=== PATIENT | female | born 1950 | race Caucasian/White ===

== ENCOUNTER 2019-11-18 16:28 | Inpatient (IN) | payer BC, MEDICARE ==
[2019-11-18 16:42] LABS: Glucose,Whole Blood 140 mg/dL (75-99)
--- NOTE | 2019-11-18 16:42 | XR ---
EXAMINATION TYPE: XR chest 1V portable DATE OF EXAM: 11/18/2019 COMPARISON: Chest x-ray July 21, 2014 HISTORY: Chest pain. TECHNIQUE: Single frontal view of the chest is obtained. FINDINGS: Overlying EKG leads. There is some chronic parenchymal change without suspicious new focal air space opacity, pleural effusion, or pneumothorax seen. The cardiac silhouette size remains withi n normal limits. The osseous structures are intact. IMPRESSION: No acute process. No significant change from prior.
--- NOTE | 2019-11-18 16:56 | ED ---
General Adult HPI - General Chief complaint: Altered Mental Status Stated complaint: STEMI Time Seen by Provider: 11/18/19 16:29 Source: EMS Mode of arrival: EMS Limitations: altered mental status - History of Present Illness Initial comments: Patient presents the ED by ambulance for evaluation. Per EMS, the patient's friend called them when the patient was found by her friend with altered mental status. Per EMS, the patient's initial EKG done in the field demonstrated anteriorly ST elevations. A code STEMI was called prior to the patient's arriv al to the ED after I viewed the patient's EMS EKG, which demonstrated anterior lead ST segment elevations with inferior lead reciprocal changes. On arrival to the ED, patient is noted to be quite confused, and she is not able to answer any questions appropriately at this time. EMS states that the patient's friend reported to them that the patient is normally A and O 3. No other history is available at this time. - Related Data Home Medications Medication Instructions Recorded Confirmed ARIPiprazole [Abilify] 20 mg PO DAILY 05/23/15 09/17/16 [place]-3 Fatty Acids/Fish Oil [Fish 1 each PO DAILY 05/23/15 09/17/16 Oil 1,000 mg Softgel] Polyethylene Glycol 3350 [Miralax] 17 gm PO DAILY 05/23/15 09/17/16 Vitamin B Complex 1 each PO DAILY 05/23/15 09/17/16 FLUoxetine HCL [PROzac] 40 mg PO DAILY 08/08/15 09/17/16 guaiFENesin [Mucinex] 600 mg PO Q12HR 02/27/16 09/17/16 Loperamide [Imodium] 2 mg PO BID PRN 06/18/16 09/17/16 Cyclobenzaprine [Flexeril] 10 mg PO HS 07/02/16 09/17/16 Previous Rx's Medication Instructions Recorded Divalproex ER [Depakote ER] 750 mg PO 2100 #7 tab.er.24h 04/26/15 Folic Acid 1 mg PO DAILY@1200 #30 tab 04/26/15 HYDROcodone/APAP 5-325MG [[place] 1 each PO TID PRN #9 tab 04/26/15 5-325] Multivitamins, Thera [Multivitamin 1 each PO DAILY@1200 #30 tab 04/26/15 (formulary)] Thiamine [Vitamin B-1] 100 mg PO DAILY@1200 #30 tab 04/26/15 Ziprasidone [Geodon] 20 mg PO BID #14 cap 04/26/15 Allergies Allergy/AdvReac Type Severity Reaction Status Date / Time fentanyl Allergy Unknown Verified 11/18/19 16:44 Review of Systems ROS Statement: Those systems with pertinent positive or pertinent negative responses have been documented in the HPI. Limitations: ROS unobtainable due to patients medical condition Past Medical History Past Medical History: Dementia, Musculoskeletal Disorder, Osteoarthritis (OA) Additional Past Medical History / Comment(s): DEAF SINCE LT EAR, gait dysfunction History of Any Multi-Drug Resistant Organisms: MRSA Date of last positivie culture/infection: 01/09/2015 MDRO Source:: Left Hip debridement Past Surgical History: Cholecystectomy Additional Past Surgical History / Comment(s): "correction of a slipped femur", bunionectomy on the right Past Anesthesia/Blood Transfusion Reactions: No Reported Reaction Past Psychological History: Bipolar, Depression Smoking Status: Former smoker Past Alcohol Use History: Occasional Past Drug Use History: None Reported - Past Family History Father Family Medical History: Unable to Obtain Additional Family Medical History / Comment(s): pt uncooperative Mother Family Medical History: Unable to Obtain Additional Family Medical History / Comment(s): pt uncooperative General Exam Limitations: altered mental status General appearance: alert Head exam: Present: atraumatic, normocephalic Eye exam: Present: normal appearance, PERRL, EOMI ENT exam: Present: mucous membranes dry Neck exam: Present: other (Trachea is in midline). Absent: tenderness, meningismus Respiratory exam: Present: normal lung sounds bilaterally. Absent: respiratory distress, wheezes, rales, rhonchi Cardiovascular Exam: Present: normal rhythm, tachycardia, normal heart sounds, other (Normal radial pulses bilaterally) GI/Abdominal exam: Present: soft. Absent: distended, tenderness, guarding Extremities exam: Absent: tenderness, pedal edema, calf tenderness Neurological exam: Present: alert, other (Patient is oriented only to self at this time; patient localizes to pain in all 4 extremities; patient is moving all 4 extremities spontaneously) Skin exam: Present: warm, dry, intact Course Vital Signs 11/18/19 11/18/19 11/18/19 16:28 16:30 16:40 Temperature 97.4 F L Pulse Rate 142 H 142 H 134 H Respiratory 20 20 20 Rate Blood Pressure 119/73 106/84 85/68 O2 Sat by Pulse 92 L 98 98 Oximetry 11/18/19 11/18/19 11/18/19 16:47 17:12 17:16 Temperature 97.4 F L Pulse Rate 137 H 134 H 134 H Respiratory 20 20 20 Rate Blood Pressure 122/104 58/45 58/45 O2 Sat by Pulse 97 97 Oximetry - Reevaluation(s) Reevaluation #1: 11/18/19 16:23 Code STEMI was activated (prior to the patient's arrival to the ED), and the patient's EMS EKG findings were discussed with Dr. Anton (ornamental machine operator). Master Fisher was activated. 11/18/19 16:36 Case was discussed again with Dr. Anton after my evaluation of the patient on her arrival to the ED. We are in agreement that given the patient's altered mentation and tachycardia that a noncontrast CT head and CT angiogram chest be obtained to rule out CVA/intracranial hemorrhage and pulmonary embolus prior to take the patient to the receiver/laborer. Plan will be to take the patient to the receiver/laborer if these imaging studies are negative. EKG Findings - EKG Comments: EKG Findings:: Sinus tachycardia, ventricular rate of 142 bpm, no ectopy, normal NV and QRS intervals, normal QT interval, normal axis, anterior lead ST elevations Medical Decision Making - Medical Decision Making Patient presents to the ED with altered mental status and anterior lead ST elevations on EKG. Patient's head CT is negative for acute intracranial abnormality, and her CT angiogram chest is negative for pulmonary embolus. Code STEMI was activated prior to the patient's arrival to the ED. Patient was immediately taken to the receiver/laborer by Dr. Torres (interventional cardiology) upon the radiologist's reads of her noncontrast head CT and CT angiogram chest. - Lab Data Result diagrams: 11/18/19 16:56 11/18/19 16:56 Lab Results 11/18/19 11/18/19 11/18/19 Range/Units 16:31 16:56 16:56 WBC 13.7 H (3.8-10.6) k/uL RBC 5.09 (3.80-5.40) m/uL Hgb 15.1 (11.4-16.0) gm/dL Hct 46.8 H (34.0-46.0) % MCV 91.9 (80.0-100.0) fL MCH 29.6 (25.0-35.0) pg MCHC 32.3 (31.0-37.0) g/dL RDW 13.8 (11.5-15.5) % Plt Count 192 (150-450) k/uL Neutrophils % 81 % Lymphocytes % 13 % Monocytes % 4 % Eosinophils % 1 % Basophils % 0 % Neutrophils # 11.1 H (1.3-7.7) k/uL Lymphocytes # 1.8 (1.0-4.8) k/uL Monocytes # 0.6 (0-1.0) k/uL Eosinophils # 0.1 (0-0.7) k/uL Basophils # 0.0 (0-0.2) k/uL PT (9.0-12.0) sec INR (<1.2) APTT (22.0-30.0) sec Sodium 131 L (137-145) mmol/L Potassium 5.0 (3.5-5.1) mmol/L Chloride 102 (98-107) mmol/L Carbon Dioxide 12 L (22-30) mmol/L Anion Gap 17 mmol/L BUN 30 H (7-17) mg/dL Creatinine 1.14 H (0.52-1.04) mg/dL Est GFR (CKD-EPI)AfAm 57 (>60 ml/min/1.73 sqM) Est GFR (CKD-EPI)NonAf 50 (>60 ml/min/1.73 sqM) Glucose 154 H (74-99) mg/dL POC Glucose (mg/dL) 140 H (75-99) mg/dL POC Glu Tree Cutter ID Radha Tsai Calcium 7.6 L (8.4-10.2) mg/dL Total Bilirubin 1.4 H (0.2-1.3) mg/dL AST 111 H (14-36) U/L ALT 47 H (4-34) U/L Alkaline Phosphatase 107 (38-126) U/L Total Creatine Kinase (30-135) U/L Total Protein 6.6 (6.3-8.2) g/dL Albumin 2.7 L (3.5-5.0) g/dL Valproic Acid <10.0 ug/mL Serum Alcohol <10 mg/dL 11/18/19 11/18/19 Range/Units 16:56 16:56 WBC (3.8-10.6) k/uL RBC (3.80-5.40) m/uL Hgb (11.4-16.0) gm/dL Hct (34.0-46.0) % MCV (80.0-100.0) fL MCH (25.0-35.0) pg MCHC (31.0-37.0) g/dL RDW (11.5-15.5) % Plt Count (150-450) k/uL Neutrophils % % Lymphocytes % % Monocytes % % Eosinophils % % Basophils % % Neutrophils # (1.3-7.7) k/uL Lymphocytes # (1.0-4.8) k/uL Monocytes # (0-1.0) k/uL Eosinophils # (0-0.7) k/uL Basophils # (0-0.2) k/uL PT 12.5 H (9.0-12.0) sec INR 1.2 H (<1.2) APTT 21.5 L (22.0-30.0) sec Sodium (137-145) mmol/L Potassium (3.5-5.1) mmol/L Chloride (98-107) mmol/L Carbon Dioxide (22-30) mmol/L Anion Gap mmol/L BUN (7-17) mg/dL Creatinine (0.52-1.04) mg/dL Est GFR (CKD-EPI)AfAm (>60 ml/min/1.73 sqM) Est GFR (CKD-EPI)NonAf (>60 ml/min/1.73 sqM) Glucose (74-99) mg/dL POC Glucose (mg/dL) (75-99) mg/dL POC Glu Tree Cutter ID Calcium (8.4-10.2) mg/dL Total Bilirubin (0.2-1.3) mg/dL AST (14-36) U/L ALT (4-34) U/L Alkaline Phosphatase (38-126) U/L Total Creatine Kinase 409 H (30-135) U/L Total Protein (6.3-8.2) g/dL Albumin (3.5-5.0) g/dL Valproic Acid ug/mL Serum Alcohol mg/dL - Radiology Data Radiology results: report reviewed (Chest x-ray is negative; noncontrast head CT is negative for acute intracranial abnormality; CT angiogram chest is negative for pulmonary embolus, but does demonstrate mild to moderate emphysematous and fibrotic changes, as well as a moderate-sized pericardial effusion causing mass effect on the right heart system) Critical Care Time Critical Care Time: Yes (ST elevation myocardial infarction, altered mental status) Total Critical Care Time: 45 Disposition Clinical Impression: Altered mental status, Pericardial effusion Narrative: Suspected ST elevation myocardial infarction Disposition: ADMITTED IP TO THIS [facility] Condition: Serious Is patient prescribed a controlled substance at d/c from ED?: No Referrals: None,Stated [Primary Care Provider] - 1-2 days Time of Disposition: 17:12
--- NOTE | 2019-11-18 17:02 | CT ---
EXAMINATION TYPE: CT brain wo con DATE OF EXAM: 11/18/2019 HISTORY: Confusion. CT DLP: 1074 mGycm. Automated Exposure Control for Dose Reduction was Utilized. TECHNIQUE: CT scan of the head is performed without contrast. COMPARISON: None. FINDINGS: There is no acute intracranial hemorrhage or midline shift identified. There is diffuse v entricular and sulcal prominence consistent with diffuse cerebral atrophy greatest over the bilateral frontal lobes. There is low-attenuation in the periventricular white matter consistent with chronic small vessel ischemic change. Dependent in opacity left maxillary sinus favors focal mucosal thicken ing. Remainder paranasal sinuses are clear. IMPRESSION: No acute intracranial hemorrhage or midline shift. There is mild to moderate diffuse ce rebral atrophy greatest over bilateral frontal lobes and chronic small vessel ischemic change noted.
[2019-11-18 17:06] LABS: Basophils % (A) 0 %; Eosinophils # (A) 0.1 k/uL (0-0.7); Eosinophils % (A) 1 %; HCT 46.8 % (34.0-46.0); HGB 15.1 gm/dL (11.4-16.0); Lymphocytes # (A) 1.8 k/uL (1.0-4.8); Lymphocytes % (A) 13 %; MCH 29.6 pg (25.0-35.0); MCHC 32.3 g/dL (31.0-37.0); MCV 91.9 fL (80.0-100.0); Mean Platelet Volume 9.2; Monocytes # (A) 0.6 k/uL (0-1.0); Monocytes % (A) 4 %; Neutrophils # (A) 11.1 k/uL (1.3-7.7); Neutrophils % (A) 81 %; Platelet Count 192 k/uL (150-450); RBC 5.09 m/uL (3.80-5.40); RDW 13.8 % (11.5-15.5); WBC 13.7 k/uL (3.8-10.6)
--- NOTE | 2019-11-18 17:08 | CT ---
EXAMINATION TYPE: CT chest angio for PE DATE OF EXAM: 11/18/2019 COMPARISON: Chest x-ray earlier today HISTORY: Tachycardia, anterior ST elevation. CT DLP: 730.2 mGycm. Automated Exposure Control for Dose Reduction was Utilized. CONTRAST: CTA scan of the thorax is performed with IV Contrast, patient injected with 100 mL of Isovue 370, pul monary embolism protocol. MIP Images are created on CT scanner and reviewed. FINDINGS: LUNGS: Exam noted suboptimal as patient is unable to breath-hold. This limits evaluation particularly for subcentimeter nodules. Background mild to probable moderate underlying emphysematous change is f elt present. There is mild bibasilar linear atelectasis and/or scarring. No suspicious focal consolid ation. No pleural effusion or pneumothorax. MEDIASTINUM: There is satisfactory enhancement of the pulmonary artery and its branches, there is no CT evidence for pulmonary embolism. There are no greater than 1 cm hilar or mediastinal lymph nodes. Moderate size pericardial effusion is seen greatest anterior inferior aspect measuring up to 21 mm i n thickness coronal image 58. Some mass effect in the right atrium and right ventricle is noted. Ther e is reflux of contrast into hepatic veins and IVC suggesting degree of right heart failure. Three-ve ssel coronary artery calcification and/or stents is seen. OTHER: Scoliotic curvature with multilevel spurring. Multilevel disc space narrowing and vacuum disc phenomenon at the thoracolumbar junction. IMPRESSION: 1. No CT evidence for acute pulmonary embolism. 2. Suboptimal study with mild to moderate underlying emphysematous and mild parenchymal fibrotic rendon ges are present. No suspicious acute pulmonary process. There is however fairly moderate-sized perica rdial effusion causing mass effect on right heart system. Significant right heart failure identified with reflux of contrast into hepatic veins and IVC even with subhepatic extension.
[2019-11-18] MEDS ORDERED: ASPIRIN 81 MG PO STA (17:09)
[2019-11-18 17:15] LABS: AST 111 U/L (14-36); African American GFR (CKD) 57 (>60 ml/min/1.73 sqM); Albumin 2.7 g/dL (3.5-5.0); Alcohol <10 mg/dL; Alkaline Phosphatase 107 U/L (38-126); Anion Gap 17 mmol/L; Blood Urea Nitrogen 30 mg/dL (7-17); Calcium 7.6 mg/dL (8.4-10.2); Carbon Dioxide 12 mmol/L (22-30); Chloride 102 mmol/L (98-107); Glucose 154 mg/dL (74-99); Non-African American GFR(CKD) 50 (>60 ml/min/1.73 sqM); Sodium 131 mmol/L (137-145); Total Bilirubin 1.4 mg/dL (0.2-1.3); Total Protein 6.6 g/dL (6.3-8.2)
[2019-11-18 17:20] LABS: Valproic Acid (Depakene) <10.0 ug/mL
[2019-11-18 17:22] LABS: ALT 47 U/L (4-34)
[2019-11-18 17:24] LABS: INR 1.2 (<1.2); Prothrombin Time 12.5 sec (9.0-12.0)
[2019-11-18] MEDS ORDERED: LIDOCAINE 1% INJ 10MG/ML (20 ML MDV) ONE (17:28)
[2019-11-18 17:29] LABS: Partial Thromboplastin Time 21.5 sec (22.0-30.0)
[2019-11-18 17:32] LABS: Creatine Kinase MB 12.5 ng/mL (0.0-2.4)
[2019-11-18] MEDS ORDERED: LIDOCAINE 1% INJ 10MG/ML (20 ML MDV) SQ ONE (17:34)
[2019-11-18] MEDS ORDERED: IV FLUID CONTINUATION 900 ML IV ONE ×2 (17:36)
[2019-11-18] MEDS ORDERED: NOREPINEPHRINE 4 MG in SODIUM CHLORIDE 0.9% 250 ML IV ONE (17:40)
[2019-11-18] MEDS ORDERED: HEPARIN SODIUM 1,000 UN/ML (10ML VL) IV ONE (17:45)
[2019-11-18] MEDS ORDERED: HEPARIN SODIUM 1,000 UN/ML (10ML VL) ONE (17:46)
[2019-11-18] MEDS ORDERED: FUROSEMIDE 10 MG/ML 4 ML VIAL ONE (17:47)
[2019-11-18] MEDS ORDERED: SODIUM BICARB 8.4% 50 ML VIAL (1 MEQ/ML) IV ONE (17:50)
[2019-11-18] MEDS ORDERED: FUROSEMIDE 10 MG/ML 4 ML VIAL IV ONE (18:00)
[2019-11-18] MEDS ORDERED: MORPHINE SULFATE 4 MG/ML SYRINGE ONE (18:02)
[2019-11-18] MEDS ORDERED: MORPHINE SULFATE 4 MG/ML SYRINGE IV ONE (18:02)
[2019-11-18 18:05] LABS: ABG Oxygen Saturation 98.7 % (94-97); ABG PCO2 21 mmHg (35-45); ABG PO2 138 mmHg (83-108); ABG TCO2 11 mmol/L (19-24); Allen Test Performed? Yes
[2019-11-18 18:09] LABS: ABG HCO3 10 mmol/L (21-25)
[2019-11-18] MEDS ORDERED: CLOPIDOGREL 75 MG TAB ONE (18:10)
[2019-11-18] MEDS ORDERED: CLOPIDOGREL 75 MG TAB PO ONE (18:15)
[2019-11-18] MEDS ORDERED: IOPAMIDOL-370 125ML BTL INJ ONE ×2 (18:53→18:54)
[2019-11-18] MEDS ORDERED: HEPARIN SODIUM,PORCINE 5,000 UNIT/ML 1 ML VIAL IV PRN (19:04)
[2019-11-18] MEDS ORDERED: RX INFO: IV CONTRAST WAS GIVEN 1 EACH MISC MISCELLANE PRN (19:07)
[2019-11-18] MEDS ORDERED: ZOLPIDEM 5 MG TAB PO PRN (19:07)
[2019-11-18] MEDS ORDERED: NITROGLYCERIN SL TABS 0.4 MG TAB SUBLINGUAL PRN (19:07)
[2019-11-18] MEDS ORDERED: ATROPINE SULFATE 0.1 MG/ML 10ML SYRINGE IV PRN (19:07)
[2019-11-18] MEDS ORDERED: MAG HYDROX/AL HYDROX/SIMETH 30 ML CUP PO PRN (19:07)
[2019-11-18] MEDS ORDERED: HEPARIN SOD,PORK IN 0.45% NACL 25,000 UNIT in 0.45% NACL 1 250ML.BAG IV SCH (19:15)
[2019-11-18] MEDS ORDERED: HEPARIN SODIUM,PORCINE 12,500 UNIT in DEXTROSE 5% IN WATER 500 ML IV SCH ×2 (19:15)
[2019-11-18] MEDS ORDERED: SODIUM CHLORIDE 0.9% 1,000 ML IV SCH (19:15)
--- NOTE | 2019-11-18 19:22 | P.PCN ---
Date of Procedure: 11/18/19 Operative Findings: PERCUTANEOUS CORONARY INTERVENTION Performing physician: Wally Torres M.D., [facility] Procedure performed: 1. Successful stenting of the proximal left anterior descending artery using 3.0 x 18 mm Xience EMBER with an excellent angiographic results 2. Successful stenting of the proximal left anterior descending artery using 3.5 x 18 mm Xience EMBER with an excellent angiographic results 3. Left heart catheterization 4. Successful placement of Impella CP in the left ventricle 5. Right common femoral artery angiogram Indication: This is a 69-year-old female patient who presented to the hospital with a change in mental status and was found to be in acute anterior ST patient myocardial infarction. She underwent an emergent heart catheterization by Dr. Anton after intracranial process was ruled out, and the heart catheterization revealed critical disease involving the proximal left anterior descending artery as well as critical disease involving the proximal RCA. Also she was found to have intermediate disease involving the mid LCx. Because of that PCI was advised. Approach: Right common femoral artery Complication: None Level of sedation: Moderate sedation length of 72 minutes Door to balloon: 90 minutes, the delay in door to balloon was because the patient underwent a CTA of the head to rule out intracranial process. Procedure description: Please refer to the prostate heart catheterization was performed by Dr. Anton earlier today. Anticoagulation was initiated using Angiomax. Subsequently I did engage the left main using an XB 35 LAD guide. Subsequently I did wire the LAD using a whisper wire. The wire was advanced all the way to the apical LAD. Subsequently I did do balloon angioplasty of the LAD using 2.5 x 12 mm balloon which was inflated under 16 mimi for 30 seconds. Subsequently I deployed 3.0 x 18 mm Xience EMBER in the proximal LAD where the stent was positioned under fluoroscopy guidance and deployed under 20 mimi for 20 seconds. The following angiogram showed good angiographic results. There was a very small [id number] possible distal edge dissection and because it was not flow-limiting I decided to leave it alone. Because the patient continues to be hypotensive and requiring high-dose of norepinephrine at 30 mics, I decided to fix the RCA. I did engage the RCA using JR 3.5 guide. I did where it using a run-through wire. Subsequently I did direct stenting of the RCA using 3.5 x 18 mm another Xience EMBER where the stent was positioned under fluoroscopy guidance and deployed under 18 mimi for 20 seconds. The following angiogram showed good angiographic results. After that and because the patient continues to be hypotensive and requiring high-dose norepinephrine I decided to place Impella in the LV. I did preclosed using 2 Perclose at 10 and 2:00 o'clock After that I did place 14-Lithuanian sheath 23 cm overestimate wire after predilated using 8-Lithuanian, then Lithuanian, and 12-Lithuanian dilators. Subsequently the sheath was flushed. Please note that the patient ACT was checked prior to place a 14-Lithuanian sheath and the patient ACT was more than 300. After that I did left heart catheterization using 6-Lithuanian pigtail catheter. The LVEDP was more than 20 mmHg. After that I did place an 018 wire in the pigtail catheter in the left ventricle. Subsequently I did advanced the Impella over the wire the left ventricle. That was performed under fluoroscopy guidance. Then it was turned on. Immediately I was able to lower the dose of norepinephrine to 20 my. At that point the procedure was completed without any complication. Postprocedure management: 1. ICU admission 2. The right to wean the patient from norepinephrine 3. Monitor the arterial circulation in the right leg 4. Removed in total in the next 24-48 hours 5. Maintain the PTT to be therapeutic per Impella protocol 6. Follow-up with the patient
--- NOTE | 2019-11-18 19:38 | CC ---
CARDIAC CATHETERIZATION REPORT INDICATION: Acute anterior wall myocardial infarction. PROCEDURE NOTE: After obtaining informed consent, left heart catheterization and coronary angiogram were performed via the right femoral artery using standard Des catheters. The patient is in cardiogenic shock with systolic blood pressures in the 60s and 70s. We started her on Levophed, but the patient remained hypertensive throughout. Her central aortic pressure is 60-70 mm. We did not do any left ventriculogram. The patient received moderate conscious sedation and total sedation time was 12 minutes. HEMODYNAMICS: Central aortic pressure is 70/40 mm. LEFT VENTRICULOGRAM: Left ventriculogram is not performed. ANGIOGRAPHIC DATA: LEFT MAIN CORONARY ARTERY: Left main coronary artery is a normal-sized vessel and is free of stenosis. Divides into left anterior descending coronary artery and circumflex coronary artery. CIRCUMFLEX CORONARY ARTERY: Circumflex coronary artery is free of significant stenosis. LEFT ANTERIOR DESCENDING CORONARY ARTERY: LAD seems occluded in its midportion. RIGHT CORONARY ARTERY: Right coronary artery is a large dominant vessel that shows a focal area of stenosis in the proximal part which seems to be 70% stenosis. CONCLUSIONS: 1. Cardiogenic shock secondary to extensive anterior wall myocardial infarction. 2. Acute occlusion of the LAD. 3. 70-80 percent stenosis involving the proximal part of the right coronary artery. PLAN: Patient will undergo emergent angioplasty of the LAD by Dr. Guerrero the on-call toll patrolman. The patient's prognosis is guarded. She is on Levophed and we will increase the dose as tolerated for a systolic pressure of 100. MMODL / IJN: [id number] /
--- NOTE | 2019-11-18 19:44 | CONS ---
CONSULTATION CHIEF COMPLAINT: Acute anterior wall myocardial infarction. HISTORY OF PRESENT ILLNESS: This is a 69-year-old lady who STEMI was diagnosed by the EMS. The patient apparently was found confused at home. EMS was called. EKG revealed acute anterior wall myocardial infarction. She was brought in. The ER physician who evaluated the patient, got a CT scan of the brain that was negative for any acute intracranial pathology. He was also wondering if the patient had a pulmonary embolism. The patient had a CT scan of the chest. I am told they were both negative and she was brought to laborer tree tapping for emergent cardiac cath. I evaluated the patient in the laborer tree tapping and she states that her primary symptom had been shortness of breath. She also appears somewhat confused. Past medical history, medications, allergies are as charted. I am not able to obtain detailed history from the patient at this time given the critical nature of patient's illness. REVIEW OF SYSTEMS: Not obtained. EXAM: Patient's heart rate is around 110 beats per minute. Blood pressure was 68/43 and patient was started on Levophed. Chest exam reveals diminished air entry at the bases. Heart exam reveals first and second heart sounds and a systolic murmur at the left lower sternal border. Abdomen is soft. Exam of the extremities did not reveal any edema. Peripheral pulses are diminished. EKG shows acute ST-segment elevation in V2, V3. Full lab showed that the creatinine was 1.1. White cell count is slightly elevated. ASSESSMENT: 1. Acute extensive anterior wall myocardial infarction. 2. Acute cardiogenic shock. PLAN: Patient will undergo emergent cardiac catheterization and possible angioplasty. MMODL / IJN: [id number] /
[2019-11-18] MEDS: NOREPINEPHRINE 4 MG in SODIUM CHLORIDE 0.9% 250 ML IV SCH (20:07)
[2019-11-18 20:30] LABS: Basophils % (A) 0 %; Eosinophils % (A) 0 %; HCT 47.8 % (34.0-46.0); HGB 15.6 gm/dL (11.4-16.0); Lymphocytes # (A) 1.6 k/uL (1.0-4.8); Lymphocytes % (A) 6 %; MCH 30.2 pg (25.0-35.0); MCHC 32.7 g/dL (31.0-37.0); MCV 92.3 fL (80.0-100.0); Monocytes # (A) 1.9 k/uL (0-1.0); Monocytes % (A) 7 %; Neutrophils # (A) 22.2 k/uL (1.3-7.7); Neutrophils % (A) 85 %; Platelet Count 203 k/uL (150-450); RBC 5.18 m/uL (3.80-5.40); RDW 13.9 % (11.5-15.5); WBC 26.2 k/uL (3.8-10.6)
[2019-11-18 20:45] LABS: Calcium 7.6 mg/dL (8.4-10.2); Magnesium 2.9 mg/dL (1.6-2.3); Potassium 5.5 mmol/L (3.5-5.1)
[2019-11-18 20:56] LABS: Fibrinogen 496 mg/dL (200-500); INR 1.5 (<1.2); Prothrombin Time 15.1 sec (9.0-12.0)
[2019-11-18 21:01] LABS: Partial Thromboplastin Time >200.0 sec (22.0-30.0)
[2019-11-18 21:04] LABS: Glucose,Whole Blood 165 mg/dL (75-99)
[2019-11-18] MEDS: SODIUM BICARB 8.4% 50 ML SYR (1 MEQ/ML) IV STA (22:06)
[2019-11-18] MEDS: ATORVASTATIN 80 MG TAB PO SCH (22:11)
[2019-11-18] MEDS: METOPROLOL TARTRATE 25 MG TAB PO SCH (22:11)
[2019-11-19 01:46] LABS: Basophils % (A) 0 %; Eosinophils % (A) 0 %; HCT 46.6 % (34.0-46.0); HGB 15.3 gm/dL (11.4-16.0); Lymphocytes # (A) 1.6 k/uL (1.0-4.8); Lymphocytes % (A) 9 %; MCHC 32.9 g/dL (31.0-37.0); MCV 91.1 fL (80.0-100.0); Mean Platelet Volume 9.5; Monocytes # (A) 1.1 k/uL (0-1.0); Monocytes % (A) 6 %; Neutrophils # (A) 15.7 k/uL (1.3-7.7); Neutrophils % (A) 83 %; Platelet Count 182 k/uL (150-450); RBC 5.11 m/uL (3.80-5.40); RDW 13.9 % (11.5-15.5); WBC 18.9 k/uL (3.8-10.6)
[2019-11-19 02:15] LABS: Albumin 3.7 g/dL (3.5-5.0); Calcium 7.5 mg/dL (8.4-10.2); Total Bilirubin 3.7 mg/dL (0.2-1.3); Total Protein 7.9 g/dL (6.3-8.2)
[2019-11-19 02:17] LABS: Potassium 5.1 mmol/L (3.5-5.1)
[2019-11-19 03:53] LABS: Appearance,Urine Bloody (Clear)
[2019-11-19 03:58] LABS: Bacteria,Urine Rare /hpf; Mucus,Urine Many /hpf; RBC,Urine 28 /hpf (0-5); Squamous Epithelial Cell,Urine 9 /hpf (0-4); WBC,Urine 28 /hpf (0-5)
[2019-11-19] MEDS: NOREPINEPHRINE 4 MG in SODIUM CHLORIDE 0.9% 250 ML IV SCH (04:06)
[2019-11-19 05:56] LABS: Basophils % (A) 0 %; Eosinophils % (A) 0 %; HCT 42.7 % (34.0-46.0); Lymphocytes # (A) 2.6 k/uL (1.0-4.8); Lymphocytes % (A) 16 %; MCH 29.7 pg (25.0-35.0); MCHC 32.7 g/dL (31.0-37.0); MCV 90.6 fL (80.0-100.0); Mean Platelet Volume 9.9; Monocytes # (A) 0.8 k/uL (0-1.0); Monocytes % (A) 5 %; Neutrophils # (A) 12.5 k/uL (1.3-7.7); Neutrophils % (A) 77 %; Platelet Count 189 k/uL (150-450); RBC 4.71 m/uL (3.80-5.40); RDW 14.1 % (11.5-15.5); WBC 16.3 k/uL (3.8-10.6)
[2019-11-19 06:15] LABS: Albumin 3.1 g/dL (3.5-5.0); Calcium 6.9 mg/dL (8.4-10.2); Total Bilirubin 3.1 mg/dL (0.2-1.3); Total Protein 7.4 g/dL (6.3-8.2)
[2019-11-19 06:17] LABS: Potassium 4.8 mmol/L (3.5-5.1)
[2019-11-19 06:40] LABS: Partial Thromboplastin Time 50.4 sec (22.0-30.0)
--- NOTE | 2019-11-19 06:54 | XR ---
EXAMINATION TYPE: XR chest 1V portable DATE OF EXAM: 11/19/2019 HISTORY: LVAD placement. Perform with HOB at 0 degrees.. REFERENCE: Previous study dated 11/18/2019. FINDINGS: Metal electrodes project over the left side of the neck. Heart size upper limits of normal. The lungs are clear. Pleural spaces are clear. IMPRESSION: BORDERLINE CARDIOMEGALY.
[2019-11-19] MEDS: SODIUM CHLORIDE 0.9% 1,000 ML IV SCH (08:00)
[2019-11-19 11:07] LABS: Partial Thromboplastin Time 54.7 sec (22.0-30.0)
--- NOTE | 2019-11-19 11:44 | P.HPIM ---
History of Present Illness Patient is a 69-year-old female came in with altered mental status found to have acute anterior wall ST ration microinfarction patient underwent cardiac catheterization found to have significant occlusion of LAD as well as proximal RCA patient underwent successful stenting of LAD as well as the Impala placement. Patient was on pressor support on telemetry here today because of cardiac shock wasn't a has Impala and the patient appears to have significant pulmonary edema patient to post cardiac physician is on IV fluids which probably need to be discontinued at this time. Patient is hyponatremic secondary to cardiac causes expected to improve with IV Lasix patient liver enzymes have highly elevated because of hepatic congestion. Patient appears to have a COPD from the CAT scan which is showing emphysematous changes and there is a moderate-sized pericardial effusion I am waiting for the echocardiogram results patient does have significant heart failure on the CAT scan along with dilated IVC. She is presently on IV heparin off levo fed. Review of Systems REVIEW OF SYSTEMS: CONSTITUTIONAL: No fever, no malaise, no fatigue. HEENT: No recent visual problems or hearing problems. Denied any sore throat. CARDIOVASCULAR: No orthopnea, PND, no palpitations, no syncope. PULMONARY: no hemoptysis. GASTROINTESTINAL: No diarrhea, no nausea, no vomiting, no abdominal pain. NEUROLOGICAL: No headaches, no weakness, no numbness. HEMATOLOGICAL: Denies any bleeding or petechiae. GENITOURINARY: Denies any burning micturition, frequency, or urgency. MUSCULOSKELETAL/RHEUMATOLOGICAL: Denies any joint pain, swelling, or any muscle pain. ENDOCRINE: Denies any polyuria or polydipsia. The rest of the 14-point review of systems is negative. Past Medical History Past Medical History: Dementia, Musculoskeletal Disorder, Osteoarthritis (OA) Additional Past Medical History / Comment(s): DEAF SINCE LT EAR, gait dysf unction History of Any Multi-Drug Resistant Organisms: MRSA Date of last positivie culture/infection: 01/09/2015 MDRO Source:: Left Hip debridement Past Surgical History: Cholecystectomy Additional Past Surgical History / Comment(s): "correction of a slipped femur", bunionectomy on the right Past Anesthesia/Blood Transfusion Reactions: No Reported Reaction Past Psychological History: Bipolar, Depression Additional Psychological History / Comment(s): PAST PSYCHOSIS Smoking Status: Former smoker Past Alcohol Use History: Occasional Additional Past Alcohol Use History / Comment(s): 30+ pack year history. REFUSED SMOKING CESSATION BOOKLET Past Drug Use History: None Reported - Past Family History Sister(s) History Unknown: Yes Family Medical History: Cancer Additional Family Medical History / Comment(s): of colon cancer Father History Unknown: Yes Family Medical History: Pulmonary Embolus Additional Family Medical History / Comment(s): of PE after surgery Mother History Unknown: Yes Family Medical History: Cancer Additional Family Medical History / Comment(s): of ovarien cancer Medications and Allergies Home Medications Medication Instructions Recorded Confirmed Type Divalproex ER [Depakote ER] 750 mg PO 2100 #7 tab.er.24h 04/26/15 09/17/16 Rx Folic Acid 1 mg PO DAILY@1200 #30 tab 04/26/15 09/17/16 Rx HYDROcodone/APAP 5-325MG [[place] 1 each PO TID PRN #9 tab 04/26/15 09/17/16 Rx 5-325] Multivitamins, Thera [Multivitamin 1 each PO DAILY@1200 #30 tab 04/26/15 09/17/16 Rx (formulary)] Thiamine [Vitamin B-1] 100 mg PO DAILY@1200 #30 tab 04/26/15 09/17/16 Rx Ziprasidone [Geodon] 20 mg PO BID #14 cap 04/26/15 09/17/16 Rx ARIPiprazole [Abilify] 20 mg PO DAILY 05/23/15 09/17/16 History [place]-3 Fatty Acids/Fish Oil [Fish 1 each PO DAILY 05/23/15 09/17/16 History Oil 1,000 mg Softgel] Polyethylene Glycol 3350 [Miralax] 17 gm PO DAILY 05/23/15 09/17/16 History Vitamin B Complex 1 each PO DAILY 05/23/15 09/17/16 History FLUoxetine HCL [PROzac] 40 mg PO DAILY 08/08/15 09/17/16 History guaiFENesin [Mucinex] 600 mg PO Q12HR 02/27/16 09/17/16 History Loperamide [Imodium] 2 mg PO BID PRN 06/18/16 09/17/16 History Cyclobenzaprine [Flexeril] 10 mg PO HS 07/02/16 09/17/16 History Allergies Allergy/AdvReac Type Severity Reaction Status Date / Time fentanyl Allergy Unknown Verified 11/18/19 16:44 Physical Exam Vitals: Vital Signs Temp Pulse Pulse Resp BP BP Pulse Ox 11/19/19 07:00 87 18 96/84 97 11/19/19 06:45 89 17 92 L 11/19/19 06:30 89 20 11/19/19 06:15 90 12 94 L 11/19/19 06:00 97.4 F L 90 25 H 96 11/19/19 05:45 90 89/55 93 L 11/19/19 05:30 90 97 11/19/19 05:15 96 27 H 95 11/19/19 05:00 97.4 F L 88 20 97 11/19/19 04:45 86 96 11/19/19 04:30 89 19 100/68 95 11/19/19 04:15 87 21 96 11/19/19 04:00 97.0 F L 87 26 H 96 11/19/19 03:45 86 22 121/105 98 11/19/19 03:30 85 19 77/58 97 11/19/19 03:15 86 20 90/69 90 L 11/19/19 03:00 88 123/113 87 L 11/19/19 02:45 90 92 L 11/19/19 02:30 90 11/19/19 02:15 89 26 H 97 11/19/19 02:00 90 27 H 96 11/19/19 01:45 92 22 92 L 11/19/19 01:30 96.9 F L 92 29 H 93 L 11/19/19 01:15 95 34 H 88 L 11/19/19 01:00 96 34 H 114/102 93/87 92 L 11/19/19 00:45 98 26 H 109/81 94 L 11/19/19 00:30 102 H 26 H 152/131 87 L 11/19/19 00:15 104 H 24 135/104 91 L 11/19/19 00:00 96.5 F L 108 H 20 109/76 97/90 91 L 11/18/19 23:45 110 H 28 H 76/49 90 L 11/18/19 23:30 112 H 28 H 100/77 89 L 11/18/19 23:15 112 H 62 H 71/57 84 L 11/18/19 23:00 96.4 F L 114 H 112 H 14 109/82 96/90 94 L 11/18/19 22:52 16 93/87 97 11/18/19 22:49 96.4 F L 115 H 18 97/91 97 11/18/19 22:45 114 H 28 H 84/61 96 11/18/19 22:43 113 H 4 L 84/61 98 11/18/19 22:40 114 H 20 84/61 96 11/18/19 22:30 114 H 16 88 L 11/18/19 22:20 113 H 14 11/18/19 22:10 118 H 16 92 L 11/18/19 22:00 118 H 89 L 11/18/19 21:52 118 H 18 92 L 11/18/19 21:50 120 H 18 90 L 11/18/19 21:49 96.0 F L 118 H 18 101/93 92 L 11/18/19 21:40 120 H 16 94 L 11/18/19 21:30 122 H 20 91 L 11/18/19 21:20 121 H 29 H 93 L 11/18/19 21:19 123 H 22 105/94 93 L 11/18/19 21:10 125 H 21 11/18/19 21:00 96.0 F L 123 H 11/18/19 20:52 123 H 20 93 L 11/18/19 20:50 125 H 19 11/18/19 20:49 130 H 20 96/92 88 L 11/18/19 20:40 129 H 18 88 L 11/18/19 20:30 130 H 8 L 88 L 11/18/19 20:22 135 H 94 L 11/18/19 20:20 134 H 14 90 L 11/18/19 20:19 94.0 F L 135 H 22 97/90 90 L 11/18/19 20:10 134 H 11 L 97 11/18/19 20:00 94.0 F L 134 H 22 90 L 11/18/19 19:50 135 H 12 84 L 11/18/19 19:49 94.0 F L 18 97/90 92 L 11/18/19 19:40 135 H 11 L 91 L 11/18/19 17:16 97.4 F L 134 H 20 58/45 97 11/18/19 17:12 134 H 20 58/45 11/18/19 16:47 137 H 20 122/104 97 11/18/19 16:40 134 H 20 85/68 98 11/18/19 16:30 142 H 20 106/84 98 11/18/19 16:28 97.4 F L 142 H 20 119/73 92 L Intake and Output 11/18/19 11/19/19 11/19/19 22:59 06:59 14:59 Intake Total 2641.533 2309.490 747.394 Output Total 67 50 Balance 2641.533 2242.490 697.394 Intake: IV 1391.1 719.7 367.9 Normal Saline Pressure 9 Bag Purge 41.1 119.7 58.9 Sodium Chloride 0.9% 1, 225 600 300 000 ml @ 75 mls/hr IV . [id number] ADRIANA Rx#:[id number] Intake, IV Titration 0.433 339.790 79.494 Amount Heparin Sod,Pork in 0.45% 0.433 13.94 29.19 NaCl 25,000 unit In 0.45 % NaCl 1 250ml.bag @ Per Protocol 10 mls/hr IV . Q24H ADRIANA Rx#:[id number] Norepinephrine 4 mg In 325.850 50.304 Sodium Chloride 0.9% 250 ml @ 0.05 MCG/KG/MIN 19. 65 mls/hr IV .[id number] ADRIANA Rx#:[id number] Oral 1250 1250 300 Output: Urine 67 50 Other: Voiding Method Indwelling Catheter # Voids 0 0 # Bowel Movements 1 Weight 103 kg 103.4 kg ABP, PAP, CO, CI - Last 8 Hours Arterial Blood Pressure 100/93 Arterial Blood Pressure 100/91 Arterial Blood Pressure 100/91 Arterial Blood Pressure 103/91 Arterial Blood Pressure 105/94 Arterial Blood Pressure 98/92 PHYSICAL EXAMINATION: GENERAL: The patient is alert and oriented x3, not in any acute distress. Well developed, well nourished. HEENT: Pupils are round and equally reacting to light. EOMI. No scleral icterus. No conjunctival pallor. Normocephalic, atraumatic. No pharyngeal erythema. No thyromegaly. CARDIOVASCULAR: S1 and S2 present. No murmurs, rubs, or gallops. She does have elevated JVD PULMONARY: Chest is clear to auscultation, no wheezing or crackles. ABDOMEN: Soft, nontender, nondistended, normoactive bowel sounds. No palpable organomegaly. MUSCULOSKELETAL: No joint swelling or deformity. EXTREMITIES: No cyanosis, clubbing, or pedal edema. NEUROLOGICAL: Gross neurological examination did not reveal any focal deficits. SKIN: No rashes. Results CBC & Chem 7: 11/19/19 05:38 11/19/19 05:38 Labs: Abnormal Lab Results - Last 24 Hours (Table) 11/18/19 11/18/19 11/18/19 Range/Units 16:31 16:56 16:56 WBC 13.7 H (3.8-10.6) k/uL Hct 46.8 H (34.0-46.0) % Neutrophils # 11.1 H (1.3-7.7) k/uL Monocytes # (0-1.0) k/uL PT (9.0-12.0) sec INR (<1.2) APTT (22.0-30.0) sec Fibrinogen (200-500) mg/dL ABG pH (7.35-7.45) ABG pCO2 (35-45) mmHg ABG pO2 (83-108) mmHg ABG HCO3 (21-25) mmol/L ABG Total CO2 (19-24) mmol/L ABG O2 Saturation (94-97) % Sodium 131 L (137-145) mmol/L Potassium (3.5-5.1) mmol/L Carbon Dioxide 12 L (22-30) mmol/L BUN 30 H (7-17) mg/dL Creatinine 1.14 H (0.52-1.04) mg/dL Glucose 154 H (74-99) mg/dL POC Glucose (mg/dL) 140 H (75-99) mg/dL Calcium 7.6 L (8.4-10.2) mg/dL Magnesium (1.6-2.3) mg/dL Total Bilirubin 1.4 H (0.2-1.3) mg/dL AST 111 H (14-36) U/L ALT 47 H (4-34) U/L Alkaline Phosphatase (38-126) U/L Lactate Dehydrogenase (313-618) U/L Total Creatine Kinase (30-135) U/L CK-MB (CK-2) (0.0-2.4) ng/mL Troponin I (0.000-0.034) ng/mL Albumin 2.7 L (3.5-5.0) g/dL Urine Appearance (Clear) Urine RBC (0-5) /hpf Urine WBC (0-5) /hpf Urine WBC Clumps (None) /hpf Ur Squamous Epith Cells (0-4) /hpf Urine Bacteria (None) /hpf Urine Mucus (None) /hpf Stool Occult Blood (Negative) 11/18/19 11/18/19 11/18/19 Range/Units 16:56 16:56 18:00 WBC (3.8-10.6) k/uL Hct (34.0-46.0) % Neutrophils # (1.3-7.7) k/uL Monocytes # (0-1.0) k/uL PT 12.5 H (9.0-12.0) sec INR 1.2 H (<1.2) APTT 21.5 L (22.0-30.0) sec Fibrinogen (200-500) mg/dL ABG pH 7.30 L (7.35-7.45) ABG pCO2 21 L (35-45) mmHg ABG pO2 138 H (83-108) mmHg ABG HCO3 10 L* (21-25) mmol/L ABG Total CO2 11 L (19-24) mmol/L ABG O2 Saturation 98.7 H (94-97) % Sodium (137-145) mmol/L Potassium (3.5-5.1) mmol/L Carbon Dioxide (22-30) mmol/L BUN (7-17) mg/dL Creatinine (0.52-1.04) mg/dL Glucose (74-99) mg/dL POC Glucose (mg/dL) (75-99) mg/dL Calcium (8.4-10.2) mg/dL Magnesium (1.6-2.3) mg/dL Total Bilirubin (0.2-1.3) mg/dL AST (14-36) U/L ALT (4-34) U/L Alkaline Phosphatase (38-126) U/L Lactate Dehydrogenase (313-618) U/L Total Creatine Kinase 409 H (30-135) U/L CK-MB (CK-2) 12.5 H (0.0-2.4) ng/mL Troponin I 28.000 H* (0.000-0.034) ng/mL Albumin (3.5-5.0) g/dL Urine Appearance (Clear) Urine RBC (0-5) /hpf Urine WBC (0-5) /hpf Urine WBC Clumps (None) /hpf Ur Squamous Epith Cells (0-4) /hpf Urine Bacteria (None) /hpf Urine Mucus (None) /hpf Stool Occult Blood (Negative) 11/18/19 11/18/19 11/18/19 Range/Units 20:00 20:00 20:00 WBC 26.2 H (3.8-10.6) k/uL Hct 47.8 H (34.0-46.0) % Neutrophils # 22.2 H (1.3-7.7) k/uL Monocytes # 1.9 H (0-1.0) k/uL PT 15.1 H (9.0-12.0) sec INR 1.5 H (<1.2) APTT >200.0 H* (22.0-30.0) sec Fibrinogen (200-500) mg/dL ABG pH (7.35-7.45) ABG pCO2 (35-45) mmHg ABG pO2 (83-108) mmHg ABG HCO3 (21-25) mmol/L ABG Total CO2 (19-24) mmol/L ABG O2 Saturation (94-97) % Sodium 133 L (137-145) mmol/L Potassium 5.5 H (3.5-5.1) mmol/L Carbon Dioxide 8 L* (22-30) mmol/L BUN 32 H (7-17) mg/dL Creatinine 1.25 H (0.52-1.04) mg/dL Glucose 153 H (74-99) mg/dL POC Glucose (mg/dL) (75-99) mg/dL Calcium 7.6 L (8.4-10.2) mg/dL Magnesium 2.9 H (1.6-2.3) mg/dL Total Bilirubin (0.2-1.3) mg/dL AST (14-36) U/L ALT (4-34) U/L Alkaline Phosphatase (38-126) U/L Lactate Dehydrogenase (313-618) U/L Total Creatine Kinase (30-135) U/L CK-MB (CK-2) (0.0-2.4) ng/mL Troponin I (0.000-0.034) ng/mL Albumin (3.5-5.0) g/dL Urine Appearance (Clear) Urine RBC (0-5) /hpf Urine WBC (0-5) /hpf Urine WBC Clumps (None) /hpf Ur Squamous Epith Cells (0-4) /hpf Urine Bacteria (None) /hpf Urine Mucus (None) /hpf Stool Occult Blood (Negative) 11/18/19 11/19/19 11/19/19 Range/Units 21:01 00:05 00:05 WBC (3.8-10.6) k/uL Hct (34.0-46.0) % Neutrophils # (1.3-7.7) k/uL Monocytes # (0-1.0) k/uL PT (9.0-12.0) sec INR (<1.2) APTT (22.0-30.0) sec Fibrinogen (200-500) mg/dL ABG pH (7.35-7.45) ABG pCO2 (35-45) mmHg ABG pO2 (83-108) mmHg ABG HCO3 (21-25) mmol/L ABG Total CO2 (19-24) mmol/L ABG O2 Saturation (94-97) % Sodium (137-145) mmol/L Potassium (3.5-5.1) mmol/L Carbon Dioxide (22-30) mmol/L BUN (7-17) mg/dL Creatinine (0.52-1.04) mg/dL Glucose (74-99) mg/dL POC Glucose (mg/dL) 165 H (75-99) mg/dL Calcium (8.4-10.2) mg/dL Magnesium (1.6-2.3) mg/dL Total Bilirubin (0.2-1.3) mg/dL AST (14-36) U/L ALT (4-34) U/L Alkaline Phosphatase (38-126) U/L Lactate Dehydrogenase 2004 H (313-618) U/L Total Creatine Kinase (30-135) U/L CK-MB (CK-2) (0.0-2.4) ng/mL Troponin I 20.400 H* (0.000-0.034) ng/mL Albumin (3.5-5.0) g/dL Urine Appearance (Clear) Urine RBC (0-5) /hpf Urine WBC (0-5) /hpf Urine WBC Clumps (None) /hpf Ur Squamous Epith Cells (0-4) /hpf Urine Bacteria (None) /hpf Urine Mucus (None) /hpf Stool Occult Blood (Negative) 11/19/19 11/19/19 11/19/19 Range/Units 01:35 01:35 01:35 WBC 18.9 H (3.8-10.6) k/uL Hct 46.6 H (34.0-46.0) % Neutrophils # 15.7 H (1.3-7.7) k/uL Monocytes # 1.1 H (0-1.0) k/uL PT (9.0-12.0) sec INR (<1.2) APTT (22.0-30.0) sec Fibrinogen 594 H (200-500) mg/dL ABG pH (7.35-7.45) ABG pCO2 (35-45) mmHg ABG pO2 (83-108) mmHg ABG HCO3 (21-25) mmol/L ABG Total CO2 (19-24) mmol/L ABG O2 Saturation (94-97) % Sodium 131 L (137-145) mmol/L Potassium (3.5-5.1) mmol/L Carbon Dioxide 13 L (22-30) mmol/L BUN 39 H (7-17) mg/dL Creatinine 1.48 H (0.52-1.04) mg/dL Glucose 145 H (74-99) mg/dL POC Glucose (mg/dL) (75-99) mg/dL Calcium 7.5 L (8.4-10.2) mg/dL Magnesium (1.6-2.3) mg/dL Total Bilirubin 3.7 H (0.2-1.3) mg/dL AST 723 H (14-36) U/L ALT 365 H (4-34) U/L Alkaline Phosphatase 184 H (38-126) U/L Lactate Dehydrogenase (313-618) U/L Total Creatine Kinase (30-135) U/L CK-MB (CK-2) (0.0-2.4) ng/mL Troponin I (0.000-0.034) ng/mL Albumin (3.5-5.0) g/dL Urine Appearance (Clear) Urine RBC (0-5) /hpf Urine WBC (0-5) /hpf Urine WBC Clumps (None) /hpf Ur Squamous Epith Cells (0-4) /hpf Urine Bacteria (None) /hpf Urine Mucus (None) /hpf Stool Occult Blood (Negative) 11/19/19 11/19/19 11/19/19 Range/Units 03:00 05:38 05:38 WBC 16.3 H (3.8-10.6) k/uL Hct (34.0-46.0) % Neutrophils # 12.5 H (1.3-7.7) k/uL Monocytes # (0-1.0) k/uL PT (9.0-12.0) sec INR (<1.2) APTT (22.0-30.0) sec Fibrinogen (200-500) mg/dL ABG pH (7.35-7.45) ABG pCO2 (35-45) mmHg ABG pO2 (83-108) mmHg ABG HCO3 (21-25) mmol/L ABG Total CO2 (19-24) mmol/L ABG O2 Saturation (94-97) % Sodium 127 L (137-145) mmol/L Potassium (3.5-5.1) mmol/L Carbon Dioxide 15 L (22-30) mmol/L BUN 46 H (7-17) mg/dL Creatinine 1.66 H (0.52-1.04) mg/dL Glucose 136 H (74-99) mg/dL POC Glucose (mg/dL) (75-99) mg/dL Calcium 6.9 L (8.4-10.2) mg/dL Magnesium (1.6-2.3) mg/dL Total Bilirubin 3.1 H (0.2-1.3) mg/dL AST 868 H (14-36) U/L ALT 376 H (4-34) U/L Alkaline Phosphatase 142 H (38-126) U/L Lactate Dehydrogenase 6685 H (313-618) U/L Total Creatine Kinase (30-135) U/L CK-MB (CK-2) (0.0-2.4) ng/mL Troponin I (0.000-0.034) ng/mL Albumin 3.1 L (3.5-5.0) g/dL Urine Appearance Bloody H (Clear) Urine RBC 28 H (0-5) /hpf Urine WBC 28 H (0-5) /hpf Urine WBC Clumps Many H (None) /hpf Ur Squamous Epith Cells 9 H (0-4) /hpf Urine Bacteria Rare H (None) /hpf Urine Mucus Many H (None) /hpf Stool Occult Blood (Negative) 11/19/19 11/19/19 11/19/19 Range/Units 05:38 05:38 09:00 WBC (3.8-10.6) k/uL Hct (34.0-46.0) % Neutrophils # (1.3-7.7) k/uL Monocytes # (0-1.0) k/uL PT (9.0-12.0) sec INR (<1.2) APTT 50.4 H (22.0-30.0) sec Fibrinogen (200-500) mg/dL ABG pH (7.35-7.45) ABG pCO2 (35-45) mmHg ABG pO2 (83-108) mmHg ABG HCO3 (21-25) mmol/L ABG Total CO2 (19-24) mmol/L ABG O2 Saturation (94-97) % Sodium (137-145) mmol/L Potassium (3.5-5.1) mmol/L Carbon Dioxide (22-30) mmol/L BUN (7-17) mg/dL Creatinine (0.52-1.04) mg/dL Glucose (74-99) mg/dL POC Glucose (mg/dL) (75-99) mg/dL Calcium (8.4-10.2) mg/dL Magnesium (1.6-2.3) mg/dL Total Bilirubin (0.2-1.3) mg/dL AST (14-36) U/L ALT (4-34) U/L Alkaline Phosphatase (38-126) U/L Lactate Dehydrogenase (313-618) U/L Total Creatine Kinase (30-135) U/L CK-MB (CK-2) (0.0-2.4) ng/mL Troponin I 51.700 H* (0.000-0.034) ng/mL Albumin (3.5-5.0) g/dL Urine Appearance (Clear) Urine RBC (0-5) /hpf Urine WBC (0-5) /hpf Urine WBC Clumps (None) /hpf Ur Squamous Epith Cells (0-4) /hpf Urine Bacteria (None) /hpf Urine Mucus (None) /hpf Stool Occult Blood Positive H (Negative) 11/19/19 Range/Units 10:20 WBC (3.8-10.6) k/uL Hct (34.0-46.0) % Neutrophils # (1.3-7.7) k/uL Monocytes # (0-1.0) k/uL PT (9.0-12.0) sec INR (<1.2) APTT 54.7 H (22.0-30.0) sec Fibrinogen (200-500) mg/dL ABG pH (7.35-7.45) ABG pCO2 (35-45) mmHg ABG pO2 (83-108) mmHg ABG HCO3 (21-25) mmol/L ABG Total CO2 (19-24) mmol/L ABG O2 Saturation (94-97) % Sodium (137-145) mmol/L Potassium (3.5-5.1) mmol/L Carbon Dioxide (22-30) mmol/L BUN (7-17) mg/dL Creatinine (0.52-1.04) mg/dL Glucose (74-99) mg/dL POC Glucose (mg/dL) (75-99) mg/dL Calcium (8.4-10.2) mg/dL Magnesium (1.6-2.3) mg/dL Total Bilirubin (0.2-1.3) mg/dL AST (14-36) U/L ALT (4-34) U/L Alkaline Phosphatase (38-126) U/L Lactate Dehydrogenase (313-618) U/L Total Creatine Kinase (30-135) U/L CK-MB (CK-2) (0.0-2.4) ng/mL Troponin I (0.000-0.034) ng/mL Albumin (3.5-5.0) g/dL Urine Appearance (Clear) Urine RBC (0-5) /hpf Urine WBC (0-5) /hpf Urine WBC Clumps (None) /hpf Ur Squamous Epith Cells (0-4) /hpf Urine Bacteria (None) /hpf Urine Mucus (None) /hpf Stool Occult Blood (Negative) Microbiology - Last 24 Hours (Table) 11/19/19 03:30 Urine Culture - Preliminary Urine,Catheterized Thrombosis Risk Factor Assmnt - Choose All That Apply Any of the Below Risk Factors Present?: Yes Each Factor Represents 1 point: Acute MT, Medical pt on bed rest, Obesity (BMI >25) Each Risk Factor Represents 2 Points: Age 61-74 years Each Risk Factor Represents 3 Points: Family history of DVT/PE Thrombosis Risk Factor Assessment Total Risk Factor Score: 8 Thrombosis Risk Factor Assessment Level: High Risk Assessment and Plan Plan: -Acute ST elevation myocardial infarction patient is status post cardiac catheterization and stenting of LAD patient is on dual antiplatelet therapy beta elisha which will be continued. Patient is on heparin as well. -Acute systolic dysfunction from acute microinfarction with acute exacerbation patient will need Lasix eventually once her blood pressure is able to tolerate patient is off Levophed patient has an Impella device in place, IV fluids will be discontinued patient was started on dobutamine drip. -Highly elevated liver enzymes: Secondary to hepatic congestion we'll repeat liver enzymes -anion gap metabolic acidosis most probably lactic acidosis from a decreased organ perfusion from cardiac shock -Cardiac shock: Dobutamine as mentioned above. Patient does have multiorgan dysfunction for from cardiac shock -Acute renal failure probably acute tubular necrosis and prerenal azotemia possibly of cardiorenal syndrome. Patient is presently anuric continue with temporal and dobutamine as mentioned above -History of bipolar disorder and schizophrenia: Patient has not been taking any of her medications for about one year as an emergency and restarting his medications now patient is not acutely psychotic
[2019-11-19] MEDS: DEXTROSE/WATER 1 250ML.BAG with DOPamine DRIP 800 MG IV SCH ×2 (12:30→13:45)
--- NOTE | 2019-11-19 12:32 | P.NPCON ---
History of Present Illness - Reason for Consult Consult date: 11/19/19 acute renal failure - Chief Complaint Acute kidney injury with acute TX - History of Present Illness This is a 69-year-old female seen in consultation because of acute kidney injury after having had acute TX as well as dye exposure because of a CTA done. She came in because of change in mental status. Cardiac catheterization showed significant occlusion of LAD as well as proximal RCA patient underwent successful stenting of LAD as well as the Impala placement She additionally has been found to have a left ventricular clot. There is no previous history of hypercoagulable state. A chest x-ray is not suggestive congestive heart failure but she is on 46 L of nasal cannula. She is cold and clammy although the blood pressure in the 100 to 110 range. Liver function tests are elevated suggestive of profound tissue perfusion problems he did she is making small amount of urine only with a Zhou catheter. Past Medical History Past Medical History: Dementia, Musculoskeletal Disorder, Osteoarthritis (OA) Additional Past Medical History / Comment(s): DEAF SINCE LT EAR, gait dysfunction History of Any Multi-Drug Resistant Organisms: MRSA Date of last positivie culture/infection: 01/09/2015 MDRO Source:: Left Hip debridement Past Surgical History: Cholecystectomy Additional Past Surgical History / Comment(s): "correction of a slipped femur", bunionectomy on the right Past Anesthesia/Blood Transfusion Reactions: No Reported Reaction Past Psychological History: Bipolar, Depression Additional Psychological History / Comment(s): PAST PSYCHOSIS Smoking Status: Former smoker Past Alcohol Use History: Occasional Additional Past Alcohol Use History / Comment(s): 30+ pack year history. REFUSED SMOKING CESSATION BOOKLET Past Drug Use History: None Reported - Past Family History Sister(s) History Unknown: Yes Family Medical History: Cancer Additional Family Medical History / Comment(s): of colon cancer Father History Unknown: Yes Family Medical History: Pulmonary Embolus Additional Family Medical History / Comment(s): of PE after surgery Mother History Unknown: Yes Family Medical History: Cancer Additional Family Medical History / Comment(s): of ovarien cancer Medications and Allergies Home Medications Medication Instructions Recorded Confirmed Type Divalproex ER [Depakote ER] 750 mg PO 2100 #7 tab.er.24h 04/26/15 09/17/16 Rx Folic Acid 1 mg PO DAILY@1200 #30 tab 04/26/15 09/17/16 Rx HYDROcodone/APAP 5-325MG [Eden 1 each PO TID PRN #9 tab 04/26/15 09/17/16 Rx 5-325] Multivitamins, Thera [Multivitamin 1 each PO DAILY@1200 #30 tab 04/26/15 09/17/16 Rx (formulary)] Thiamine [Vitamin B-1] 100 mg PO DAILY@1200 #30 tab 04/26/15 09/17/16 Rx Ziprasidone [Geodon] 20 mg PO BID #14 cap 04/26/15 09/17/16 Rx ARIPiprazole [Abilify] 20 mg PO DAILY 05/23/15 09/17/16 History Goodell-3 Fatty Acids/Fish Oil [Fish 1 each PO DAILY 05/23/15 09/17/16 History Oil 1,000 mg Softgel] Polyethylene Glycol 3350 [Miralax] 17 gm PO DAILY 05/23/15 09/17/16 History Vitamin B Complex 1 each PO DAILY 05/23/15 09/17/16 History FLUoxetine HCL [PROzac] 40 mg PO DAILY 08/08/15 09/17/16 History guaiFENesin [Mucinex] 600 mg PO Q12HR 02/27/16 09/17/16 History Loperamide [Imodium] 2 mg PO BID PRN 06/18/16 09/17/16 History Cyclobenzaprine [Flexeril] 10 mg PO HS 07/02/16 09/17/16 History Allergies Allergy/AdvReac Type Severity Reaction Status Date / Time fentanyl Allergy Unknown Verified 11/18/19 16:44 Physical Exam Vitals: Vital Signs Temp Pulse Pulse Resp BP BP Pulse Ox 11/19/19 11:00 97 29 H 140/110 92 L 11/19/19 10:00 94 32 H 132/122 94 L 11/19/19 09:00 93 126/109 90 L 11/19/19 08:00 98 F 92 27 H 95 11/19/19 07:00 87 18 96/84 97 11/19/19 06:45 89 17 92 L 11/19/19 06:30 89 20 11/19/19 06:15 90 12 94 L 11/19/19 06:00 97.4 F L 90 25 H 96 11/19/19 05:45 90 89/55 93 L 11/19/19 05:30 90 97 11/19/19 05:15 96 27 H 95 11/19/19 05:00 97.4 F L 88 20 97 11/19/19 04:45 86 96 11/19/19 04:30 89 19 100/68 95 11/19/19 04:15 87 21 96 11/19/19 04:00 97.0 F L 87 26 H 96 11/19/19 03:45 86 22 121/105 98 11/19/19 03:30 85 19 77/58 97 11/19/19 03:15 86 20 90/69 90 L 11/19/19 03:00 88 123/113 87 L 11/19/19 02:45 90 92 L 11/19/19 02:30 90 11/19/19 02:15 89 26 H 97 11/19/19 02:00 90 27 H 96 11/19/19 01:45 92 22 92 L 11/19/19 01:30 96.9 F L 92 29 H 93 L 11/19/19 01:15 95 34 H 88 L 11/19/19 01:00 96 34 H 114/102 93/87 92 L 11/19/19 00:45 98 26 H 109/81 94 L 11/19/19 00:30 102 H 26 H 152/131 87 L 11/19/19 00:15 104 H 24 135/104 91 L 11/19/19 00:00 96.5 F L 108 H 20 109/76 97/90 91 L 11/18/19 23:45 110 H 28 H 76/49 90 L 11/18/19 23:30 112 H 28 H 100/77 89 L 11/18/19 23:15 112 H 62 H 71/57 84 L 11/18/19 23:00 96.4 F L 114 H 112 H 14 109/82 96/90 94 L 11/18/19 22:52 16 93/87 97 11/18/19 22:49 96.4 F L 115 H 18 97/91 97 11/18/19 22:45 114 H 28 H 84/61 96 11/18/19 22:43 113 H 4 L 84/61 98 11/18/19 22:40 114 H 20 84/61 96 11/18/19 22:30 114 H 16 88 L 11/18/19 22:20 113 H 14 11/18/19 22:10 118 H 16 92 L 11/18/19 22:00 118 H 89 L 11/18/19 21:52 118 H 18 92 L 11/18/19 21:50 120 H 18 90 L 11/18/19 21:49 96.0 F L 118 H 18 101/93 92 L 11/18/19 21:40 120 H 16 94 L 11/18/19 21:30 122 H 20 91 L 11/18/19 21:20 121 H 29 H 93 L 11/18/19 21:19 123 H 22 105/94 93 L 11/18/19 21:10 125 H 21 11/18/19 21:00 96.0 F L 123 H 11/18/19 20:52 123 H 20 93 L 11/18/19 20:50 125 H 19 11/18/19 20:49 130 H 20 96/92 88 L 11/18/19 20:40 129 H 18 88 L 11/18/19 20:30 130 H 8 L 88 L 11/18/19 20:22 135 H 94 L 11/18/19 20:20 134 H 14 90 L 11/18/19 20:19 94.0 F L 135 H 22 97/90 90 L 11/18/19 20:10 134 H 11 L 97 11/18/19 20:00 94.0 F L 134 H 22 90 L 11/18/19 19:50 135 H 12 84 L 11/18/19 19:49 94.0 F L 18 97/90 92 L 11/18/19 19:40 135 H 11 L 91 L 11/18/19 17:16 97.4 F L 134 H 20 58/45 97 11/18/19 17:12 134 H 20 58/45 11/18/19 16:47 137 H 20 122/104 97 11/18/19 16:40 134 H 20 85/68 98 11/18/19 16:30 142 H 20 106/84 98 11/18/19 16:28 97.4 F L 142 H 20 119/73 92 L Intake and Output 11/18/19 11/19/19 11/19/19 22:59 06:59 14:59 Intake Total 2641.533 2309.490 1383.607 Output Total 67 90 Balance 2641.533 2242.490 1293.607 Intake: IV 1391.1 719.7 553.1 Normal Saline Pressure 15 Bag Purge 41.1 119.7 88.1 Sodium Chloride 0.9% 1, 225 600 450 000 ml @ 75 mls/hr IV . [id number] ADRIANA Rx#:[id number] Intake, IV Titration 0.433 339.790 108.507 Amount Heparin Sod,Pork in 0.45% 0.433 13.94 58.203 NaCl 25,000 unit In 0.45 % NaCl 1 250ml.bag @ Per Protocol 10 mls/hr IV . Q24H ADRIANA Rx#:[id number] Norepinephrine 4 mg In 325.850 50.304 Sodium Chloride 0.9% 250 ml @ 0.05 MCG/KG/MIN 19. 65 mls/hr IV .[id number] ADRIANA Rx#:[id number] Oral 1250 1250 722 Output: Urine 67 90 Other: Voiding Method Indwelling Catheter Indwelling Catheter # Voids 0 0 # Bowel Movements 1 Weight 103 kg 103.4 kg ABP, PAP, CO, CI - Last 8 Hours Arterial Blood Pressure 100/93 Arterial Blood Pressure 100/91 Arterial Blood Pressure 100/91 Arterial Blood Pressure 103/91 Examination she is somewhat cold and clammy but awake and alert and responds. HEENT exam no JVP neck is supple no facial asymmetry Lungs are clear to auscultation fair air entry bilaterally Heart sounds are unremarkable she is in normal sinus rhythm no murmur rub gallop Abdomen soft nontender no organomegaly status masses Extremity exam was no edema Profoundly cool to touch. Neurologically awake alert to be answering questions and alert Results - Lab Results Most recent lab results ABG pH 7.30 (7.35-7.45) L 11/18/19 18:00 ABG pCO2 21 mmHg (35-45) L 11/18/19 18:00 ABG pO2 138 mmHg (83-108) H 11/18/19 18:00 ABG HCO3 10 mmol/L (21-25) L* 11/18/19 18:00 ABG O2 Saturation 98.7 % (94-97) H 11/18/19 18:00 Calcium 6.9 mg/dL (8.4-10.2) L 11/19/19 05:38 Magnesium 2.9 mg/dL (1.6-2.3) H 11/18/19 20:00 11/19/19 05:38 11/19/19 05:38 Assessment and Plan Assessment: Impression 1. Acute kidney injury from cardiogenic shock, and dye exposure with cardiac cath as well as CTA. 2. Hypotension secondary to cardiogenic shock 3. Significant metabolic acidosis with bicarb of 13, gap of 19, and has improved to a bicarb 15 and a gap of 12 secondary to acute kidney injury and likely lactic acidosis. She was given IV bicarbonate 4 Hyponatremia secondary to acute kidney injury. 5. Severe coronary artery disease acute TX and cardiogenic shock. Status post stenting and impella device Recommendation 1. Continue IV normal saline at 75 mL an hour because of the intense shock she has 2. Check lactic acid 3. Sodium bicarb can be given by mouth 650 4 times a day 4. Watch serum sodium, if her renal function improves sodium will improve did 5. Prognosis guarded
[2019-11-19] MEDS: METOPROLOL TARTRATE 25 MG TAB PO SCH (12:45)
[2019-11-19] MEDS ORDERED: LIDOCAINE 1% INJ 10MG/ML (20 ML MDV) ONE (12:49)
[2019-11-19] MEDS ORDERED: ONDANSETRON 4 MG/2 ML VIAL ONE (12:55)
[2019-11-19] MEDS ORDERED: ONDANSETRON 4 MG/2 ML VIAL IVP ONE (13:15)
[2019-11-19] MEDS ORDERED: LIDOCAINE 1% INJ 10MG/ML (20 ML MDV) SQ ONE (13:22)
--- NOTE | 2019-11-19 13:36 | P.PCN ---
Date of Procedure: 11/19/19 Operative Findings: VASCULAR PROCEDURE 1. Successful removal of Impella CP from the LV 2. Successful right common femoral artery hemostasis using two Perclose 3. Successful placement of arterial line at the left common femoral artery 4. Successful placement of central venous line at the left common femoral vein Indication: This is a 69-year-old female patient who was admitted to the hospital yesterday with acute anterior ST patient myocardial infarction complicated by cardiogenic shock. Impella CP was placed. She was brought today to undergo removal of the Impella as well as to place a central venous line as well as an arterial line. Approach: Left common femoral artery and left common femoral vein Complication: None Level of sedation: Moderate with a sedation length of 14 minutes Procedure description: After obtaining an informed consent the patient was brought to the cardiac can labeler. The patient was prepped and dropped in the usual sterile fashion. After that I did advance an 035 stiff Amplatzer wire all the way to the ascending aorta. Subsequently I did pull the inferolateral along with the sheath and meanwhile we held manual pressure, at that point the stiff wire was left through the right groin. Subsequently I deployed the two Perclose placed yesterday and I was able to achieve good hemostasis. After assuring that there was no bleeding from the groin, I was able to pull the stiff wire. By the end there was no bleeding. I was able to feel diminished pulse in the right anterior tibial artery/dorsalis pedis artery. After that I access the left common femoral vein and left common femoral artery using micropuncture technique, the micropuncture wire passed easily then I placed a 4-Persian sheath at the left common femoral vein and left common femoral arteries. Both sheaths were flushed. The procedure was completed without any complications Postprocedure management: 1. Standard groin care 2. Follow-up with the patient
[2019-11-19 13:45] VITALS: BMI 36.8
[2019-11-19] MEDS ORDERED: DEXTROSE 5% IN WATER 250 ML with AMIODARONE 300 MG IV ONE (13:55)
[2019-11-19] MEDS ORDERED: DEXTROSE 5% IN WATER 100 ML with AMIODARONE 150 MG IV ONE (13:55)
[2019-11-19] MEDS ORDERED: HEPARIN SODIUM,PORCINE 5,000 UNIT/ML 1 ML VIAL IV PRN (14:22)
[2019-11-19] MEDS ORDERED: HEPARIN SODIUM,PORCINE 10,000 UNIT/ML 1 ML VIAL IV ONE (14:22)
[2019-11-19] MEDS ORDERED: LOPERAMIDE 2 MG CAP PO PRN (14:27)
[2019-11-19] MEDS ORDERED: AMIODARONE 360 MG in DEXTROSE 5% IN WATER 200 ML IV ONE ×2 (14:30)
[2019-11-19] MEDS: HEPARIN SOD,PORK IN 0.45% NACL 25,000 UNIT in 0.45% NACL 1 250ML.BAG IV SCH (14:54)
[2019-11-19 15:01] LABS: Basophils % (A) 0 %; Eosinophils # (A) 0.1 k/uL (0-0.7); Eosinophils % (A) 0 %; HCT 36.6 % (34.0-46.0); HGB 12.1 gm/dL (11.4-16.0); Lymphocytes # (A) 2.5 k/uL (1.0-4.8); Lymphocytes % (A) 15 %; MCH 29.3 pg (25.0-35.0); MCHC 33.1 g/dL (31.0-37.0); MCV 88.8 fL (80.0-100.0); Mean Platelet Volume 10.5; Monocytes % (A) 6 %; Neutrophils # (A) 12.9 k/uL (1.3-7.7); Neutrophils % (A) 77 %; Platelet Count 193 k/uL (150-450); RBC 4.12 m/uL (3.80-5.40); RDW 14.1 % (11.5-15.5); WBC 16.8 k/uL (3.8-10.6)
[2019-11-19 15:06] LABS: Creatine Kinase 698 U/L (30-135)
[2019-11-19] MEDS: SODIUM BICARBONATE TAB 650 MG TAB PO SCH (15:11)
[2019-11-19 15:17] LABS: INR 1.2 (<1.2); Partial Thromboplastin Time 30.9 sec (22.0-30.0); Prothrombin Time 11.9 sec (9.0-12.0)
--- NOTE | 2019-11-19 15:28 | PN ---
PROGRESS NOTE This is a 69-year-old lady who was admitted to the hospital with acute anterior wall myocardial infarction and cardiogenic shock. Underwent emergent cardiac catheterization, angioplasty of LAD. She had an Impella device put in. This morning, she is awake, alert, talking but has very poor urine output. She had shock liver with elevated AST and ALT. Potassium is 4.8, creatinine is 1.6. Hemoglobin is 14. An echocardiogram shows severe LV systolic dysfunction with an ejection fraction of 10% to 15% with an apical thrombus. PHYSICAL EXAMINATION: On exam, heart rate is 87 beats per minute, blood pressure is 96/82, respiratory rate 18. Chest exam reveals diminished air entry bilaterally with occasional crackles. Heart exam reveals first and second heart sounds. No gallop. There is a systolic murmur at the apex. Abdomen is soft. Examination of the extremities did not reveal any edema. Peripheral pulses are palpable. LABS: Hemoglobin is 14, platelet count is 189. Potassium is 4.8, creatinine is 1.6. Troponin is 51. ASSESSMENT: 1. Acute anterior wall myocardial infarction status post cath and angioplasty. 2. Cardiogenic shock status post Impella device. 3. Ischemic cardiomyopathy with apical thrombus. PLAN: The patient's prognosis is poor. We will remove the Impella today. Her peripheral pulses are diminished. I will start her on renal dose dopamine. We will continue aspirin and Plavix. Give beta blockers once the blood pressure is stable. Consult Nephrology. She needs to continue IV heparin once the sheath is pulled for the apical thrombus. MMODL / IJN: [id number] /
[2019-11-19 15:35] LABS: LDH 7076 U/L (313-618)
[2019-11-19 17:15] VITALS: BP 88/74
[2019-11-19] MEDS ORDERED: CALCIUM CARBONATE 500 MG CHEWABLE PO PRN (17:57)
[2019-11-19] MEDS ORDERED: PANTOPRAZOLE 40 MG/10 ML VIAL IVP STA (18:06)
[2019-11-19] MEDS: IOPAMIDOL CONTRAST (ORAL USE) VIAL PO PRN ×2 (18:36→19:54)
[2019-11-19 18:59] LABS: Glucose,Whole Blood 193 mg/dL (75-99)
[2019-11-19] MEDS ORDERED: CLOPIDOGREL 75 MG TAB PO SCH (19:08)
[2019-11-19] MEDS: AMIODARONE 300 MG in DEXTROSE 5% IN WATER 250 ML IV SCH ×2 (20:18)
[2019-11-19] MEDS ORDERED: PANTOPRAZOLE 40 MG/10 ML VIAL IVP SCH (21:00)
[2019-11-19] MEDS ORDERED: MORPHINE SULFATE 2 MG/ML SYRINGE IVP STA (21:04)
[2019-11-19] MEDS ORDERED: SODIUM CHLORIDE 0.9% 500 ML 250 ML IV ONE (21:04)
--- NOTE | 2019-11-19 21:25 | CT ---
EXAMINATION TYPE: CT abdomen pelvis wo con DATE OF EXAM: 11/19/2019 COMPARISON: CT of the chest for pulmonary embolism dated 11/18/2019 HISTORY: abdominal pain CT DLP: 1409.2 mGycm Automated exposure control for dose reduction was used. TECHNIQUE: Helical acquisition of images was performed from the lung bases through the pelvis. FINDINGS: Patient motion limits examination. LUNG BASES: There are trace bilateral pleural effusions and multifocal basilar atelectasis. LIVER/GB: There is new left hepatic lobe portal venous gas extending to the periphery. There is also pneumatosis intestinalis seen such as on coronal image 74. Portal venous gas is seen in the superior mesenteric vein and portal splenic confluence. PANCREAS: No significant abnormality is seen. SPLEEN: No splenomegaly. ADRENALS: Nodular thickening of the medial limb of the left adrenal gland measures 1.6 cm is not comp atible with a benign adenoma. Right adrenal gland also demonstrates a nodule and is indeterminate russell suring 1.7 cm also not fitting of a benign adenoma. KIDNEYS: Limited due to motion artifact. Right renal 6.9 cm cyst is seen. FREE AIR: Pneumatosis intestinalis is seen as well as air throughout mesenteric venous vasculature. ADENOPATHY: No greater than 1 cm short axis lymph node in the abdomen or pelvis. OSSEOUS STRUCTURES: Extensive destructive arthropathy of the right hand and mild degenerative change of the left hip. Levoscoliosis of the lumbar spine and advanced degenerative disc disease of the vis ualized thoracolumbar spine. BOWEL: Again pneumatosis intestinalis is seen. Few loops of small bowel are mildly dilated measuring up to 3.3 cm. Air-fluid levels are seen throughout small bowel loops. Rectal tube is in place. Colon is largely decompressed with few scattered colonic diverticula without pericolonic fat stranding. OTHER: Density moderate pericardial effusion is seen with average Hounsfield unit of 90 and thickness of 1.1 cm. Trace amount of fluid in the pelvis. Generalized muscular atrophy and gluteal injection g ranulomas are incidentally seen. Urinary bladder is decompressed containing contrast from a recent CT of the chest with contrast. Air in the urinary bladder is likely from the Zhou catheter placement. IMPRESSION: 1. NEW DIFFUSE PORTAL VENOUS GAS AND PNEUMATOSIS INTESTINALIS, FINDINGS THAT ARE SEEN IN ISCHEMIC BOW EL. LACTIC ACID LEVELS ARE RECOMMENDED. SURGICAL CONSULTATION IS ALSO RECOMMENDED. FINDINGS 1 AND 2 W ERE ALSO DISCUSSED WITH THE PATIENT'S NURSE CHAITANYA AT 9:22 PM ON 11/19/2019 2. HIGH DENSITY PERICARDIAL EFFUSION IS CONCERNING FOR HEMOPERICARDIUM OR PERICARDITIS. 3. BILATERAL INDETERMINATE ADRENAL GLAND LESIONS THAT ARE NOT FITTING OF BENIGN ADENOMAS. FURTHER STAN RACTERIZATION ON A NONEMERGENT BASIS WITH THREE-PHASE ENHANCED CT ABDOMEN OR MRI IS RECOMMENDED. A Red level critical message alert has been initiated for Miguel Vallecillo via the [employer] Critical Results System on 11/19/2019 9:06 PM. This message alert has been sent to Miguel Vallecillo v ia the preferences provided by the clinician for the receipt of Radiology Critical Findings. Message ID [id number].
[2019-11-19 22:00] LABS: ABG Base Excess -17.6 mmol/L; ABG PCO2 20 mmHg (35-45); ABG PH 7.28 (7.35-7.45); ABG PO2 123 mmHg (83-108); ABG TCO2 10 mmol/L (19-24); Allen Test Performed? Yes
[2019-11-19 22:04] LABS: ABG HCO3 9 mmol/L (21-25)
[2019-11-19] MEDS: PROPOFOL 1,000 MG in EMPTY BAG 1 BAG IV SCH (22:30)
[2019-11-19 22:35] LABS: Basophils % (A) 0 %; Eosinophils # (A) 0.1 k/uL (0-0.7); Eosinophils % (A) 0 %; HCT 35.4 % (34.0-46.0); HGB 11.3 gm/dL (11.4-16.0); Lymphocytes # (A) 1.7 k/uL (1.0-4.8); Lymphocytes % (A) 11 %; MCV 90.7 fL (80.0-100.0); Mean Platelet Volume 11.6; Monocytes # (A) 0.7 k/uL (0-1.0); Monocytes % (A) 5 %; Neutrophils # (A) 13.2 k/uL (1.3-7.7); Neutrophils % (A) 83 %; Platelet Count 184 k/uL (150-450); RBC 3.91 m/uL (3.80-5.40); RDW 14.1 % (11.5-15.5); WBC 15.9 k/uL (3.8-10.6)
[2019-11-19] MEDS ORDERED: HYDROmorphone 1 MG/ML 1 ML SYRINGE IVP PRN (22:57)
[2019-11-19 23:00] LABS: Large Platelets Present
[2019-11-19] MEDS ORDERED: SODIUM CHLORIDE 0.9% 150 ML with VASOPRESSIN 60 UNIT IV SCH ×2 (23:15)
[2019-11-19 23:16] LABS: ABG Base Excess -18.1 mmol/L; ABG HCO3 12 mmol/L (21-25); ABG Oxygen Saturation 57.4 % (94-97); ABG PCO2 40 mmHg (35-45); ABG TCO2 13 mmol/L (19-24)
[2019-11-19] MEDS: IPRATROPIUM-ALBUTEROL 3 ML NEB INHALATION SCH (23:23)
[2019-11-19 23:24] LABS: Fibrinogen 497 mg/dL (200-500)
--- NOTE | 2019-11-19 23:24 | XR ---
EXAMINATION TYPE: XR chest 1V portable DATE OF EXAM: 11/19/2019 COMPARISON: Today HISTORY: Check tube placement TECHNIQUE: FINDINGS: The endotracheal tube appears 4 cm into the right mainstem bronchus. There is significant a telectasis and volume loss in the left hemithorax. Right lung is clear. There is nasogastric tube in the stomach. There is no heart failure. IMPRESSION: Endotracheal tube is low and should BE pulled back 8 cm. There is significant atelectasis in the left lung that is new compared to exam this morning.
[2019-11-19] MEDS ORDERED: SODIUM BICARB 8.4% 50 ML SYR (1 MEQ/ML) IV STA ×3 (23:25→23:34)
[2019-11-19 23:28] LABS: Allen Test Performed? no
[2019-11-19 23:31] LABS: Partial Thromboplastin Time >200.0 sec (22.0-30.0)
[2019-11-19] MEDS: SODIUM BICARB 8.4% 50 ML SYR (1 MEQ/ML) IV STA (23:32)
[2019-11-19 23:34] LABS: Calcium 6.6 mg/dL (8.4-10.2); Potassium 4.3 mmol/L (3.5-5.1)
[2019-11-19] MEDS: NOREPINEPHRINE 32 MG in SODIUM CHLORIDE 0.9% 218 ML IV SCH (23:38)
[2019-11-20] MEDS ORDERED: SODIUM CHLORIDE 0.9% 2,000 ML IV ONE
--- NOTE | 2019-11-20 00:32 | XR ---
EXAMINATION TYPE: XR chest 1V portable DATE OF EXAM: 11/20/2019 COMPARISON: Yesterday HISTORY: Check tube placement TECHNIQUE: FINDINGS: Endotracheal tube is 2 cm from the zahida in fairly good position. There is improved aerati on of the left lung compared to recent exam. Right lung is clear. There is left-sided central venous catheter with the tip in the right atrium. There is nasogastric tube in the stomach. IMPRESSION: Endotracheal tube in fairly good position. There is much improved aeration of the left maicol ng.
[2019-11-20] MEDS ORDERED: ATROPINE SULFATE 0.1 MG/ML 10ML SYRINGE ONE (00:45)
[2019-11-20 00:55] LABS: ABG Base Excess -21.6 mmol/L; ABG Oxygen Saturation 99.3 % (94-97); ABG PCO2 39 mmHg (35-45); ABG PO2 266 mmHg (83-108); ABG TCO2 11 mmol/L (19-24)
[2019-11-20 01:00] LABS: Allen Test Performed? no
[2019-11-20] MEDS ORDERED: DEXTROSE 5% IN WATER 1,000 ML with SODIUM BICARB (1 MEQ/ML) 150 ML IV SCH (01:30)
[2019-11-20] MEDS: SODIUM BICARBONATE TAB 650 MG TAB PO SCH ×2 (01:31→01:48)
[2019-11-20] MEDS: ATORVASTATIN 80 MG TAB PO SCH (01:32)
[2019-11-20 01:43] LABS: Glucose,Whole Blood 158 mg/dL (75-99)
[2019-11-20] MEDS: NOREPINEPHRINE 4 MG in SODIUM CHLORIDE 0.9% 250 ML IV SCH (02:13)
[2019-11-20] MEDS: METOPROLOL TARTRATE 25 MG TAB PO SCH (02:14)
[2019-11-20] MEDS: SODIUM CHLORIDE 0.9% 1,000 ML IV SCH (02:20)
[2019-11-20] MEDS: INSULIN ASPART (NovoLOG) 100 UNIT/ML VIAL SQ SCH ×2 (02:22→08:59)
[2019-11-20] MEDS: PROPOFOL 1,000 MG in EMPTY BAG 1 BAG IV SCH (02:47)
[2019-11-20] MEDS: IPRATROPIUM-ALBUTEROL 3 ML NEB INHALATION SCH ×2 (03:01→07:24)
[2019-11-20] MEDS ORDERED: EPINEPHrine 10 ML SYRINGE (0.1 MG/ML) ONE (03:19)
[2019-11-20] MEDS ORDERED: SODIUM BICARB 8.4% 50 ML SYR (1 MEQ/ML) ONE ×2 (03:19→06:06)
[2019-11-20] MEDS: HEPARIN SOD,PORK IN 0.45% NACL 25,000 UNIT in 0.45% NACL 1 250ML.BAG IV SCH (03:40)
[2019-11-20] MEDS: NOREPINEPHRINE 32 MG in SODIUM CHLORIDE 0.9% 218 ML IV SCH (03:52)
--- NOTE | 2019-11-20 03:53 | P.EN ---
Code blue note patient went into cardiopulmonary arrest with PEA arrest, resuscitation measures started with CPR and ACLS protocol patient was given 4 rounds of epinephrine and 2 bicarb amp. no shocks were delivered due to PEA. successful RSC obtained. patient continues to be on 2 IV pressors and bicarb drip, patient had recent STEMI followed by impala insertion and removal . she is also noted to have moderate pericardial effusion and intestinal pneumatosis , primary team , ICU , cardiology and surgery aware. python django developer ICU physician notified by staff. Primary team notified through perfect serve, python django developer physician not a participant on perfect serve, was transferred to [facility] phone number, no answer , left a brief message. prognosis poor.
[2019-11-20 04:13] VITALS: TEMP 96
[2019-11-20] MEDS: AMIODARONE 300 MG in DEXTROSE 5% IN WATER 250 ML IV SCH ×2 (06:03)
[2019-11-20 06:11] LABS: ABG Base Excess -19.3 mmol/L; ABG HCO3 11 mmol/L (21-25); ABG Oxygen Saturation 99.2 % (94-97); ABG PCO2 34 mmHg (35-45); ABG PO2 385 mmHg (83-108); ABG TCO2 12 mmol/L (19-24)
[2019-11-20 06:20] LABS: Allen Test Performed? no
[2019-11-20 06:40] LABS: Hypochromasia Marked; MCH 30.8 pg (25.0-35.0); MCHC 31.6 g/dL (31.0-37.0); MCV 97.4 fL (80.0-100.0); Mean Platelet Volume 12.1; Platelet Count 131 k/uL (150-450); RBC 2.46 m/uL (3.80-5.40); RDW 14.4 % (11.5-15.5); WBC 10.9 k/uL (3.8-10.6)
[2019-11-20 06:41] LABS: HCT 23.9 % (34.0-46.0); HGB 7.6 gm/dL (11.4-16.0)
[2019-11-20 06:48] LABS: Albumin 1.4 g/dL (3.5-5.0); Total Bilirubin 1.6 mg/dL (0.2-1.3); Total Protein 3.8 g/dL (6.3-8.2)
[2019-11-20 06:56] LABS: Band Neutrophils % 19 %; Large Platelets Present; Lymphocytes # (M) 1.96 k/uL (1.0-4.8); Monocytes # (M) 0.55 k/uL (0-1.0); Neutrophils % (M) 58 %; Nucleated Red Blood Cells 0 /100 WBC (0-0); Total Cells Counted 100; Toxic Vacuolation Present
[2019-11-20 07:01] LABS: INR 2.4 (<1.2); Prothrombin Time 23.6 sec (9.0-12.0)
[2019-11-20 07:02] LABS: Partial Thromboplastin Time 153.1 sec (22.0-30.0)
--- NOTE | 2019-11-20 07:10 | CONS ---
CONSULTATION PULMONARY/CRITICAL CARE CONSULTATION: DATE OF CONSULTATION: November 20, 2019 This is a 69-year-old female who was admitted to the hospital on November 17. She came into the emergency room via EMS. She apparently came in with mental status changes. The patient was apparently found by the friend with mental status changes. Her initial EKG in the field apparently demonstrated ST-segment elevation. A code STEMI was called prior to the patient arriving in the emergency department and the patient then had an EKG which demonstrated anterior lead ST-segment elevation with inferior lead reciprocal changes. The patient was quite confused. Not able to answer any questions. Anyway, the patient did end up going to the catheterization lab initially with Dr. Anton. She was found in cardiac catheterization to have an acute occlusion of the left anterior descending coronary artery and also a 70% to 80% of the proximal right coronary artery. She was also found to be in cardiogenic shock. Dr. Guerrero took the patient back to the catheterization laboratory and put a stent in the LAD, one stent in the right coronary artery and placed an Impella device on the , which was removed today. She apparently was here in the ICU and apparently developed abdominal discomfort. An abdominal CT was ordered. It revealed new diffuse portal venous gas and pneumatosis intestinalis which were concerning for ischemic bowel. Surgical consultation was recommended. I believe Dr. Miramontes ended up seeing the patient. There was a high density pericardial effusion concerning for hemopericardium or pericarditis and some abnormalities noted in the adrenal glands. I was called by Dr. Miramontes earlier sunny. The patient apparently was in extremis. She was quite tachycardic, hypotensive and tachypneic. 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 Prior to this, I was not consulted. The patient was found to be in significant respiratory distress and anesthesia was asked to intubate the patient. Subsequent to that, a right radial art line was placed by myself and I also placed a left subclavian triple-lumen catheter. Currently, she is on the volume assist-control mode rate of 20, tidal volume 350 and FiO2 100%, PEEP of 5. Blood gases showed a pO2 of 42, pCO2 of 40 and a pH 7.08. Chest x-ray reveals that the endotracheal tube is in the right mainstem and I have asked the nurse to pull it back and repeat a blood gas. The patient is also on saline at 75 mL an hour, received 3 amps of sodium bicarbonate. He is on amiodarone 0.5 mg/minute, norepinephrine at 99 mcg/minute, vasopressin 0.04 units/minute and is receiving 2 L fluid bolus. She was also on IV heparin, but it was stopped for the procedures. A repeat blood gas will be done shortly once the endotracheal tube is pulled back. MEDICATIONS: Her home medications are reviewed. She is normally on Abilify, fish oil, MiraLAX, vitamin B complex, Prozac, Mucinex, Imodium, Flexeril, Depakote ER, folic acid, [place], multivitamins, thiamine, and Geodon. ALLERGIES: Allergies are FENTANYL. MEDICAL HISTORY: Medical history is apparently positive for dementia, osteoarthritis, deafness in the left ear, and a prior history of MRSA infection. SURGICAL HISTORY: Surgical history includes among other things a left hip debridement and previous cholecystectomy as well as a bunionectomy on the right side. Other medical problems include bipolar disorder and depression. SOCIAL HISTORY: Positive for previous tobacco use. She drinks occasionally. Does not use any illicit drug use. FAMILY HISTORY: Family history was unable to be obtained. REVIEW OF SYSTEMS: Cannot be obtained at this time. The patient is currently sedated and on the ventilator. PHYSICAL EXAMINATION: VITAL SIGNS: Current vital signs include a temperature which is 97.3, heart rate which is 100, respiratory rate which is 28, blood pressure which is 96/55, and saturation which is in the low 90s. GENERAL: She appears sedated. HEENT: Examination is grossly unremarkable. There is an orally placed endotracheal tube and NG tube. NECK: Supple. There is a left subclavian catheter which I recently placed. No adenopathy. CARDIOVASCULAR: Examination reveals tachycardia. It is regular. S1, S2 normal. Heart sounds are distant. LUNGS: Reveal coarse bilateral rhonchi. Breath sounds are very diminished on the left side reflecting the endotracheal tube being down the right mainstem. The respiratory therapist was asked to pull it back. ABDOMEN: Obese. Bowel sounds are not heard. EXTREMITIES: Are intact. There is some mild edema. SKIN: Without rash. NEUROLOGIC: Examination could not be properly evaluated given her current level of sedation. LABS: Labs are reviewed. Most recently, white count 15.9 down from 26.2, hemoglobin 11.3, hematocrit 35.4, platelet count 184,000. PT 11.9, INR 1.2 PTT was greater than 200 when last checked. Her most recent blood gases show a pO2 of 42, pCO2 of 40 and a pH 7.08, bicarbonate was 12, saturation was 57%. That was on 100% oxygen, 5 of PEEP. Sodium 121, potassium 4.3, chloride 94, CO2 of 10. Anion gap is 17. BUN and creatinine were 60 and 2.32. Lactic acid is 6.8. Glucose 193. Alkaline phosphatase 184. LDH 7076. CK 698. Troponins were 28 and 51.7 respectively. AST was 723, ALT of 365. Urine is bloody with 28 RBCs and 28 WBCs. There were white blood cell clumps many white blood cell clumps. Stools were positive for occult blood. Clostridium difficile studies were negative. Chest x-rays reviewed and mentioned above. MEDICATIONS: Current medications are reviewed. ASSESSMENT: 1. ST-segment elevation acute myocardial infarction, with cardiogenic shock, status post stenting of the LAD and right coronary artery as well as placement of Impella device, which was removed today. 2. Acute hypoxemic respiratory failure requiring intubation and mechanical ventilation on November 18. 3. Suspected ischemic bowel. 4. Lactic acidosis. 5. Anion gap metabolic acidosis secondary to elevated lactate. 6. Acute kidney injury/acute tubular necrosis. 7. Shock liver. 8. Hyponatremia. 9. Obesity. 10.History of dementia. 11.History of degenerative joint disease. 12.History of anxiety/depression. 13.Deafness, left ear. 14.Prior history of methicillin-resistant Staphylococcus aureus infection. PLAN: Her overall prognosis remains very guarded. The patient will get fluid bolus and sodium bicarbonate. She is currently on amiodarone at 0.5 mg/minute. She is maxed out on Levophed/norepinephrine. Vasopressin is added. Endotracheal tube was pulled back 4 cm. I will repeat the blood gas. Additional recommendations and suggestions are forthcoming. Overall prognosis remains very guarded. Medications are reviewed. MMODL / IJN: [id number] /
--- NOTE | 2019-11-20 07:16 | P.PN ---
Subjective Progress Note Date: 11/20/19 On today's evaluation of 11/20/2019, the patient was seen in intensive care unit. Events occurring overnight were noted. The patient is post acute STEMI underwent cardiac catheterization found to have significant occlusion of the LAD and proximal RCA, post stenting of LAD, post Impella placement and removal.. The patient's condition decompensated overnight. The patient became progressively more hypotensive and acidotic and a CAT scan of the abdomen was also done that showed evidence of diffuse portal venous gas and pneumatosis intestinalis consistent with bowel ischemia. In addition, there was a high density pericardial effusion concerning of hemopericardium. Noted the patient was intubated in the evening, just prior to midnight. The patient is currently on a assist-control mode at the rate of 20 with an FiO2 of 100% with a PEEP of 10 and a tidal volume of 350. The blood gases was obtained yesterday and there are series of blood gases that showed severe acidosis with a pH of 7.09 and a pCO2 of 34 and the most recent pO2 is at 385. Hemodynamically the patient is doing poorly. He is on 100 mics of norepinephrine infusion and 0.04 units per minute of vasopressin. The patient nothing she is barely in the mid 80s systolic. Pulses are absent in lower extremities bilaterally. Probably some vague femoral artery pulses can be obtained. Note that the patient had recorded 4 times overnight. These codes were done based on ACLS protocol. The first code the patient was down for 11 minutes, following that the patient received a total of 4 epinephrine and 2 bicarbs. Second code was for a total of 9 minutes and the patient received the epinephrines and 1 bicarb, third code was for 8 minutes and the patient received the epinephrine and 1 bicarb and the fourth code was for 3 minutes and the patient received one epinephrine and 1 bicarb push. She is currently unresponsive. Pupils are fixed and dilated. She is in a sinus rhythm with ST segment elevation and multiple leads. NG tube is in place and that is bloody output from the NG. The patient is having diarrhea with a fecal management system in place. The patient is not producing any urine output. Creatinine is up to 2.3. This is from yesterday's lab. Lactic acid level was up to 6.8 from yesterday. The LDH was above 7000. And today's white cell count is at some point tenderness of the levels are still pending. There is a drop in the platelet count down to 131. As mentioned, the patient is on a propofol at 15 g per KG per minute, she is on wide-open norepinephrine infusion, vasopressin and amiodarone drip. She is also on a bicarb infusion at 100 mL an hour. CODE STATUS apparently has been followed as the patient has a public guardian was unable to come up with a change in the CODE STATUS. Objective - Vital Signs Vital signs: Vital Signs Temp 96.0 F L 11/20/19 00:00 Pulse 83 11/20/19 06:30 Resp 20 11/20/19 06:30 BP 88/74 11/19/19 19:00 Pulse Ox 83 L 11/20/19 05:00 Intake & Output 11/19/19 11/20/19 11/20/19 18:59 06:59 18:59 Intake Total 2601.507 4006.492 Output Total 230 55 Balance 2371.507 3951.492 Weight 103.4 kg 116.4 kg Intake: IV 1021.1 3170 Dextrose 5% in Water 1, 500 000 ml @ 100 mls/hr IV . [id number] ADRIANA with Sodium Bicarb (1 Meq/ml) 150 ml Rx#:[id number] Normal Saline Pressure 33 45 Bag Purge 88.1 Sodium Chloride 0.9% 1, 900 2625 000 ml @ 75 mls/hr IV . [id number] [facility] Rx#:[id number] Intake, IV Titration 358.407 836.492 Amount Amiodarone 300 mg In 243.75 Dextrose 5% in Water 250 ml @ 0.5 MG/MIN 25 mls/hr IV .Q10H ADRIANA Rx#: [id number] Amiodarone 360 mg In 149.9 33.3 Dextrose 5% in Water 200 ml @ 1 MG/MIN 33.333 mls/ hr IV .Q6H ONE Rx#: [id number] Dextrose 5% in Water 100 100 ml @ 618 mls/hr IV .Q10M ONE with Amiodarone 150 mg Rx#:[id number] Heparin Sod,Pork in 0.45% 229.858 NaCl 25,000 unit In 0.45 % NaCl 1 250ml.bag @ 18 UNITS/KG/HR 18.612 mls/hr IV .[id number] ADRIANA Rx#: [id number] Heparin Sod,Pork in 0.45% 58.203 NaCl 25,000 unit In 0.45 % NaCl 1 250ml.bag @ Per Protocol 10 mls/hr IV . Q24H [facility]RIANA Rx#:[id number] Norepinephrine 32 mg In 185.393 Sodium Chloride 0.9% 218 ml @ 0.9 MCG/KG/MIN 43. 622 mls/hr IV .[id number] [facility] Rx#:[id number] Norepinephrine 4 mg In 50.304 0 Sodium Chloride 0.9% 250 ml @ 0.05 MCG/KG/MIN 19. 65 mls/hr IV .[id number] [facility] Rx#:[id number] Propofol 1,000 mg In 144.191 Empty Bag 1 bag @ Titrate IV .Q0M [facility]RIANA Rx#: [id number] Oral 1222 Output: Urine 230 55 Other: Voiding Method Indwelling Catheter Indwelling Catheter # Bowel Movements 1 ABP, PAP, CO, CI - Last Documented Arterial Blood Pressure 51/43 - Exam Patient unresponsive, intubated on mechanical ventilator, pupils are fixed dilat ed. Orogastric and orotracheal tube in place. There is bloody output from the orogastric tube. Head exam was generally normal. There was no scleral icterus or corneal arcus. Mucous membranes were moist. Neck was supple and without jugular venous distension, thyromegaly, or carotid bruits. Carotids were easily palpable bilaterally. There was no adenopathy. The patient has a left subclavian triple-lumen catheter in place. Lungs sounds are diminished bilaterally. There is scattered rhonchi heard throughout the lung harvey. Heart sounds are distant, positive S1-S2 and there is no significant murmurs appreciated. Abdominal exam revealed normal bowel sounds. The abdomen was soft, non-tender, a nd without masses, organomegaly, or appreciable enlargement of the abdominal aorta. Extremities are cold and clammy and there is mottling of the skin in addition to absent pulses and all 4 extremities. Femoral pulses are palpated. Skin shows mottling of the skin in lower extremities bilaterally. No open wounds or sores. Neurologically the patient is completely unresponsive. She does not respond to any deep painful stimulation. Babinski's are negative. Pupils are fixed and dilated and the patient is not having any active respiratory efforts. No cough. No gag. No corneal. Psych evaluation cannot be obtained. - Labs CBC & Chem 7: 11/20/19 05:57 11/19/19 22:20 Labs: Abnormal Lab Results - Last 24 Hours (Table) 11/19/19 11/19/19 11/19/19 Range/Units 09:00 10:20 14:40 WBC (3.8-10.6) k/uL RBC (3.80-5.40) m/uL Hgb (11.4-16.0) gm/dL Hct (34.0-46.0) % Plt Count (150-450) k/uL Neutrophils # (1.3-7.7) k/uL Neutrophils # (Manual) (1.3-7.7) k/uL PT (9.0-12.0) sec INR (<1.2) APTT 54.7 H (22.0-30.0) sec ABG pH (7.35-7.45) ABG pCO2 (35-45) mmHg ABG pO2 (83-108) mmHg ABG HCO3 (21-25) mmol/L ABG Total CO2 (19-24) mmol/L ABG O2 Saturation (94-97) % Sodium (137-145) mmol/L Chloride (98-107) mmol/L Carbon Dioxide (22-30) mmol/L BUN (7-17) mg/dL Creatinine (0.52-1.04) mg/dL Glucose (74-99) mg/dL POC Glucose (mg/dL) (75-99) mg/dL Plasma Lactic Acid Frandy 3.5 H* (0.7-2.0) mmol/L Calcium (8.4-10.2) mg/dL Lactate Dehydrogenase (313-618) U/L Creatine Kinase (30-135) U/L CK-MB (CK-2) (0.0-2.4) ng/mL Stool Occult Blood Positive H (Negative) 11/19/19 11/19/19 11/19/19 Range/Units 14:40 14:40 14:40 WBC 16.8 H (3.8-10.6) k/uL RBC (3.80-5.40) m/uL Hgb (11.4-16.0) gm/dL Hct (34.0-46.0) % Plt Count (150-450) k/uL Neutrophils # 12.9 H (1.3-7.7) k/uL Neutrophils # (Manual) (1.3-7.7) k/uL PT (9.0-12.0) sec INR (<1.2) APTT (22.0-30.0) sec ABG pH (7.35-7.45) ABG pCO2 (35-45) mmHg ABG pO2 (83-108) mmHg ABG HCO3 (21-25) mmol/L ABG Total CO2 (19-24) mmol/L ABG O2 Saturation (94-97) % Sodium (137-145) mmol/L Chloride (98-107) mmol/L Carbon Dioxide (22-30) mmol/L BUN (7-17) mg/dL Creatinine (0.52-1.04) mg/dL Glucose (74-99) mg/dL POC Glucose (mg/dL) (75-99) mg/dL Plasma Lactic Acid Frandy (0.7-2.0) mmol/L Calcium (8.4-10.2) mg/dL Lactate Dehydrogenase 7076 H (313-618) U/L Creatine Kinase 698 H (30-135) U/L CK-MB (CK-2) 20.5 H (0.0-2.4) ng/mL Stool Occult Blood (Negative) 11/19/19 11/19/19 11/19/19 Range/Units 14:40 18:55 18:57 WBC (3.8-10.6) k/uL RBC (3.80-5.40) m/uL Hgb (11.4-16.0) gm/dL Hct (34.0-46.0) % Plt Count (150-450) k/uL Neutrophils # (1.3-7.7) k/uL Neutrophils # (Manual) (1.3-7.7) k/uL PT (9.0-12.0) sec INR 1.2 H (<1.2) APTT 30.9 H (22.0-30.0) sec ABG pH (7.35-7.45) ABG pCO2 (35-45) mmHg ABG pO2 (83-108) mmHg ABG HCO3 (21-25) mmol/L ABG Total CO2 (19-24) mmol/L ABG O2 Saturation (94-97) % Sodium (137-145) mmol/L Chloride (98-107) mmol/L Carbon Dioxide (22-30) mmol/L BUN (7-17) mg/dL Creatinine (0.52-1.04) mg/dL Glucose (74-99) mg/dL POC Glucose (mg/dL) 193 H (75-99) mg/dL Plasma Lactic Acid Frandy 6.8 H* (0.7-2.0) mmol/L Calcium (8.4-10.2) mg/dL Lactate Dehydrogenase (313-618) U/L Creatine Kinase (30-135) U/L CK-MB (CK-2) (0.0-2.4) ng/mL Stool Occult Blood (Negative) 11/19/19 11/19/19 11/19/19 Range/Units 21:56 22:20 22:20 WBC 15.9 H (3.8-10.6) k/uL RBC (3.80-5.40) m/uL Hgb 11.3 L (11.4-16.0) gm/dL Hct (34.0-46.0) % Plt Count (150-450) k/uL Neutrophils # 13.2 H (1.3-7.7) k/uL Neutrophils # (Manual) (1.3-7.7) k/uL PT (9.0-12.0) sec INR (<1.2) APTT (22.0-30.0) sec ABG pH 7.28 L (7.35-7.45) ABG pCO2 20 L (35-45) mmHg ABG pO2 123 H (83-108) mmHg ABG HCO3 9 L* (21-25) mmol/L ABG Total CO2 10 L (19-24) mmol/L ABG O2 Saturation 98.0 H (94-97) % Sodium 121 L (137-145) mmol/L Chloride 94 L (98-107) mmol/L Carbon Dioxide 10 L (22-30) mmol/L BUN 60 H (7-17) mg/dL Creatinine 2.32 H (0.52-1.04) mg/dL Glucose 169 H (74-99) mg/dL POC Glucose (mg/dL) (75-99) mg/dL Plasma Lactic Acid Frandy (0.7-2.0) mmol/L Calcium 6.6 L (8.4-10.2) mg/dL Lactate Dehydrogenase (313-618) U/L Creatine Kinase (30-135) U/L CK-MB (CK-2) (0.0-2.4) ng/mL Stool Occult Blood (Negative) 11/19/19 11/19/19 11/20/19 Range/Units 22:20 23:16 00:53 WBC (3.8-10.6) k/uL RBC (3.80-5.40) m/uL Hgb (11.4-16.0) gm/dL Hct (34.0-46.0) % Plt Count (150-450) k/uL Neutrophils # (1.3-7.7) k/uL Neutrophils # (Manual) (1.3-7.7) k/uL PT (9.0-12.0) sec INR (<1.2) APTT >200.0 H* (22.0-30.0) sec ABG pH 7.08 L* 7.01 L* (7.35-7.45) ABG pCO2 (35-45) mmHg ABG pO2 42 L* 266 H (83-108) mmHg ABG HCO3 12 L 10 L* (21-25) mmol/L ABG Total CO2 13 L 11 L (19-24) mmol/L ABG O2 Saturation 57.4 L 99.3 H (94-97) % Sodium (137-145) mmol/L Chloride (98-107) mmol/L Carbon Dioxide (22-30) mmol/L BUN (7-17) mg/dL Creatinine (0.52-1.04) mg/dL Glucose (74-99) mg/dL POC Glucose (mg/dL) (75-99) mg/dL Plasma Lactic Acid Frandy (0.7-2.0) mmol/L Calcium (8.4-10.2) mg/dL Lactate Dehydrogenase (313-618) U/L Creatine Kinase (30-135) U/L CK-MB (CK-2) (0.0-2.4) ng/mL Stool Occult Blood (Negative) 11/20/19 11/20/19 11/20/19 Range/Units 01:42 05:57 05:57 WBC 10.9 H (3.8-10.6) k/uL RBC 2.46 L (3.80-5.40) m/uL Hgb 7.6 L D (11.4-16.0) gm/dL Hct 23.9 L (34.0-46.0) % Plt Count 131 L (150-450) k/uL Neutrophils # (1.3-7.7) k/uL Neutrophils # (Manual) 8.30 H (1.3-7.7) k/uL PT 23.6 H (9.0-12.0) sec INR 2.4 H (<1.2) APTT 153.1 H* (22.0-30.0) sec ABG pH (7.35-7.45) ABG pCO2 (35-45) mmHg ABG pO2 (83-108) mmHg ABG HCO3 (21-25) mmol/L ABG Total CO2 (19-24) mmol/L ABG O2 Saturation (94-97) % Sodium (137-145) mmol/L Chloride (98-107) mmol/L Carbon Dioxide (22-30) mmol/L BUN (7-17) mg/dL Creatinine (0.52-1.04) mg/dL Glucose (74-99) mg/dL POC Glucose (mg/dL) 158 H (75-99) mg/dL Plasma Lactic Acid Frandy (0.7-2.0) mmol/L Calcium (8.4-10.2) mg/dL Lactate Dehydrogenase (313-618) U/L Creatine Kinase (30-135) U/L CK-MB (CK-2) (0.0-2.4) ng/mL Stool Occult Blood (Negative) 11/20/19 Range/Units 06:17 WBC (3.8-10.6) k/uL RBC (3.80-5.40) m/uL Hgb (11.4-16.0) gm/dL Hct (34.0-46.0) % Plt Count (150-450) k/uL Neutrophils # (1.3-7.7) k/uL Neutrophils # (Manual) (1.3-7.7) k/uL PT (9.0-12.0) sec INR (<1.2) APTT (22.0-30.0) sec ABG pH 7.09 L* (7.35-7.45) ABG pCO2 34 L (35-45) mmHg ABG pO2 385 H (83-108) mmHg ABG HCO3 11 L (21-25) mmol/L ABG Total CO2 12 L (19-24) mmol/L ABG O2 Saturation 99.2 H (94-97) % Sodium (137-145) mmol/L Chloride (98-107) mmol/L Carbon Dioxide (22-30) mmol/L BUN (7-17) mg/dL Creatinine (0.52-1.04) mg/dL Glucose (74-99) mg/dL POC Glucose (mg/dL) (75-99) mg/dL Plasma Lactic Acid Frandy (0.7-2.0) mmol/L Calcium (8.4-10.2) mg/dL Lactate Dehydrogenase (313-618) U/L Creatine Kinase (30-135) U/L CK-MB (CK-2) (0.0-2.4) ng/mL Stool Occult Blood (Negative) Microbiology - Last 24 Hours (Table) 11/19/19 03:30 Urine Culture - Preliminary Urine,Catheterized Assessment and Plan Plan: [address] segment elevation myocardial infarction. The patient is post emergent stenting of the LAD and she also required the assistance of an impeller device for hemodynamic support that was ultimately removed. 2 cardiogenic shock secondary to above, with an ejection fraction of 10-15% [address] segment elevation, consider pericarditis versus new occlusion of the LAD stent 4 frequent cardiac arrests during which the patient was either MPA or profoundly hypotensive with a blood pressure was lost and the patient subsequently went into a PEA. The patient was coded a total of 4 times. Currently markedly hypotensive on high dose norepinephrine infusion and vasopressin. Current systolic blood pressures the mid 50s. 5 pericardial effusion, consider hemopericardium, consider temponade 6 acute upper GI bleed 7 acute pneumatosis intestinalis likely secondary to ischemic bowel, currently on Zosyn. General surgeries on the case. Not a surgical candidate for any extremity laparotomy or surgical evaluation. 8 severe acidosis including lactic acidosis 9 acute kidney injury, the patient and aortic for now 10 shock liver 11 bipolar disorder and schizophrenia Plan This patient is critically ill and the patient has multisystem organ failure This patient has bowel ischemia with pneumatosis intestinalis in addition to cardiogenic shock and signs of multisystem organ failure. There could be a component of large pericardial effusion/tamponade. Nevertheless the patient is post multisystem organ failure and the patient is post for cardiac arrests and possibly a recurrent ST segment elevation myocardial infarction. Based on all this, her chances of recovery is extremely low. She has signs of anoxic encephalopathy for now. The patient's pupils are fixed dilated and she is completely unresponsive and she is not having any active respiratory efforts. Suspect a significant degree of anoxic encephalopathy on top of her multisystem organ failure and cardiac failure/cardiogenic shock. Based on all this and based on my assessment this morning, I'm recommending changing her CODE STATUS to comfort care if possible. I'm going to discuss this with the legal guardian. If echo status is not done, I would continue supporting her medically however I would not recommend any further codes as the patient's condition is futile and her chances of recovery seems to be extremely low based on the above-mentioned evaluation. I will suggest no further cardiac codes on this patient as the patient has been ordered recorded a total of 4 times and she would likely coded in the next few hours as the patient remains profoundly hypotensive not responding to pressors. We'll discuss this case also with a guardian and will discussed also with the cardiology group. This information was done and more than 30 minutes. There is a critically care evaluation. Time with Patient: Greater than 30
--- NOTE | 2019-11-20 07:16 | PCN ---
PROCEDURE NOTE PULMONARY/CRITICAL CARE PROCEDURE NOTE: PROCEDURE: Right radial arterial line. PARENTING SKILLS INSTRUCTOR: Dr. Valdivia. There was informed consent and universal timeout. ARTERIAL LINE PLACEMENT: Indications: Hemodynamic monitoring. A time-out was completed verifying correct patient, procedure, site, positioning, and implant(s) or special equipment if applicable. Kvng's test was performed to ensure adequate perfusion. The patient's right wrist was prepped and draped in sterile fashion. 1% Lidocaine was used to anesthetize the area. An 18G Arrow arterial line was introduced into the right radial artery. The catheter was threaded over the guide wire and the needle was removed with appropriate pulsatile blood return. Blood loss was minimal. The catheter was then sutured in place to the skin and a sterile dressing applied. Perfusion to the extremity distal to the point of catheter insertion was checked and found to be adequate. The patient tolerated the procedure well and there were no complications. The art line was placed for frequent blood draws and blood gas monitoring. The right radial artery was employed. There was no immediate complication. There was good blood return and waveform. The patient tolerated the procedure well. The catheter was sutured in place. Sterile dressing was applied by the nurse. There was no immediate complication. MMODL / IJN: [id number] /
--- NOTE | 2019-11-20 07:22 | PCN ---
PROCEDURE NOTE PULMONARY/CRITICAL CARE PROCEDURE NOTE: PROCEDURE: A left subclavian triple-lumen catheter. PREOPERATIVE DIAGNOSIS: Administration of fluids and pressors. POSTOPERATIVE DIAGNOSIS: Administration of fluids and pressors. INSIDE UPHOLSTERER: Dr. Valdivia. There was informed consent and universal timeout. TRIPLE LUMEN CATHETER PLACEMENT: Indication: Hemodynamic monitoring/Intravenous access. A time-out was completed verifying correct patient, procedure, site, positioning, and implant(s) or special equipment if applicable. The patient was placed in a dependent position appropriate for triple lumen catheter placement based on the vein to be cannulated. The patient's left shoulder was prepped and draped in sterile fashion. 1% Lidocaine was used to anesthetize the surrounding skin area. A triple lumen 9F Cordis catheter was introduced into the left subclavian vein using Seldinger technique. The catheter was threaded smoothly over the guide wire and appropriate blood return was obtained. Each lumen of the catheter was evacuated of air and flushed with sterile saline. The catheter was then sutured in place to the skin and a sterile dressing applied. Perfusion to the extremity distal to the point of catheter insertion was checked and found to be adequate. There was no immediate complication. There was good blood return from all 3 ports. The patient tolerated the procedure well. The catheter was sutured in place. Sterile dressing was applied by the nurse. There was no immediate complication. A chest x-ray was ordered to check placement and to preclude a complication. The tip of the catheter was seen in the junction of superior vena cava, right atrium. MMODL / IJN: [id number] /
[2019-11-20 07:23] LABS: Potassium 5.1 mmol/L (3.5-5.1)
[2019-11-20 07:25] LABS: Calcium 4.9 mg/dL (8.4-10.2)
[2019-11-20 07:29] LABS: Glucose,Whole Blood 140 mg/dL (75-99)
[2019-11-20] MEDS ORDERED: PIPERACILLIN-TAZOBACTAM 3.375 GM in SODIUM CHLORIDE 0.9% 100 ML IVPB SCH (08:00)
--- NOTE | 2019-11-20 08:25 | PN ---
PROGRESS NOTE Mireya Gandhi is an unfortunate 69-year-old lady with multiple comorbid conditions who presented with an acute ST-elevation IL involving the anterior wall on Wednesday evening and underwent stenting of the LAD as well as the RCA and an Impella was placed because of a cardiogenic shock. Impella was removed yesterday. The patient has been hypotensive requiring high doses of Levophed and vasopressin. Her urine output is almost non-existent with very scanty urine output. She is severely acidotic with a pH of less than 7.1. Her lactic acid level in the arterial blood gases is about 22. Her prognosis is very poor and given the fact that we are dealing with a cardiogenic shock with hypoperfusion, I would recommend that we not do any aggressive intervention and keep her comfortable. Apparently she coded a few times in the night and I spoke to Dr. Ruiz, the supply chain specialist. Cardiac-britton, I will recommend no aggressive intervention, comfort care at this time and await further input from the legal guardian. Her blood pressure with all the pressors on board is about 60 systolic. Heart rate is in the 80s sinus with ST elevation. Physical exam revealed S1, S2 heard with a short systolic murmur and a ventilator assisted breath sounds. Laboratory profile suggests severe acidosis, poor perfusion on a high dose of pressors with no urine output. Prognosis is poor. I would recommend comfort care. MMODL / IJN: [id number] /
[2019-11-20 08:59] VITALS: PULSE 86; RESP 23
[2019-11-20] MEDS ORDERED: CHLORHEXIDINE GLUCONATE 15 ML CUP MUCOUS MEM SCH (09:00)
--- NOTE | 2019-11-20 09:07 | ECHOF ---
Referral Reason:Placement of Left Ventricular Assist Device MEASUREMENTS -------- HEIGHT: 167.6 cm WEIGHT: 103.0 kg BP: FINDINGS -------- Sinus rhythm. Limited Study The left ventricular size is normal. Overall left ventricular systolic function is severely impaire d with, an EF < 20%. A catheter is noted in the LVOT Possible Thrombus in LV [place] CONCLUSIONS -------- 1. Sinus rhythm. 2. Limited Study 3. The left ventricular size is normal. 4. Overall left ventricular systolic function is severely impaired with, an EF < 20%. 5. Possible Thrombus in LV [place] ROAD DESIGN DRAFTSPERSON: Lela Arnett [facility]
--- NOTE | 2019-11-20 10:03 | P.GSCN ---
History of Present Illness Consult date: 11/20/19 Reason for Consult: Ischemic bowel History of present illness: This a 69-year-old female who was admitted to hospital with acute CO. Patient had a deterioration in her clinical condition. She underwent computed tomography scan of the abdomen and pelvis. Patient's found have evidence of ischemic bowel. The patient was intubated last night. She has had significant issues with hypotension and was placed on maximum dose pressors last night. The patient has a legal guardian. Apparently care is being withdrawn this morning. Past Medical History Past Medical History: Dementia, Musculoskeletal Disorder, Osteoarthritis (OA) Additional Past Medical History / Comment(s): DEAF SINCE LT EAR, gait dysfunction History of Any Multi-Drug Resistant Organisms: MRSA Year Discovered:: 01/09/2015 MDRO Source:: Left Hip debridement Past Surgical History: Cholecystectomy Additional Past Surgical History / Comment(s): "correction of a slipped femur", bunionectomy on the right Past Anesthesia/Blood Transfusion Reactions: No Reported Reaction Past Psychological History: Bipolar, Depression Additional Psychological History / Comment(s): PAST PSYCHOSIS Smoking Status: Former smoker Past Alcohol Use History: Occasional Additional Past Alcohol Use History / Comment(s): 30+ pack year history. REFUSED SMOKING CESSATION BOOKLET Past Drug Use History: None Reported - Past Family History Sister(s) History Unknown: Yes Family Medical History: Cancer Additional Family Medical History / Comment(s): of colon cancer Father History Unknown: Yes Family Medical History: Pulmonary Embolus Additional Family Medical History / Comment(s): of PE after surgery Mother History Unknown: Yes Family Medical History: Cancer Additional Family Medical History / Comment(s): of ovarien cancer Medications and Allergies Home Medications Medication Instructions Recorded Confirmed Type Unable To Assess [Unable to Assess] 11/20/19 11/20/19 History Allergies Allergy/AdvReac Type Severity Reaction Status Date / Time fentanyl Allergy Unknown Verified 11/18/19 16:44 Surgical - Exam Vital Signs Temp Pulse Resp BP Pulse Ox 97.4 F L 142 H 20 119/73 92 L 11/18/19 16:28 11/18/19 16:28 11/18/19 16:28 11/18/19 16:28 11/18/19 16:28 The patient's pressor support has been withdrawn. Patient currently has systolic blood pressures in the 60 range - General severe distress - Abdomen Abdomen soft. Results - Labs 11/20/19 05:57 11/20/19 05:57 Abnormal Lab Results - Last 24 Hours (Table) 11/19/19 11/19/19 11/19/19 Range/Units 09:00 10:20 14:40 WBC (3.8-10.6) k/uL RBC (3.80-5.40) m/uL Hgb (11.4-16.0) gm/dL Hct (34.0-46.0) % Plt Count (150-450) k/uL Neutrophils # (1.3-7.7) k/uL Neutrophils # (Manual) (1.3-7.7) k/uL PT (9.0-12.0) sec INR (<1.2) APTT 54.7 H (22.0-30.0) sec ABG pH (7.35-7.45) ABG pCO2 (35-45) mmHg ABG pO2 (83-108) mmHg ABG HCO3 (21-25) mmol/L ABG Total CO2 (19-24) mmol/L ABG O2 Saturation (94-97) % ABG Lactic Acid (0.5-1.6) mmol/L Sodium (137-145) mmol/L Chloride (98-107) mmol/L Carbon Dioxide (22-30) mmol/L BUN (7-17) mg/dL Creatinine (0.52-1.04) mg/dL Glucose (74-99) mg/dL POC Glucose (mg/dL) (75-99) mg/dL Plasma Lactic Acid Frandy 3.5 H* (0.7-2.0) mmol/L Calcium (8.4-10.2) mg/dL Total Bilirubin (0.2-1.3) mg/dL AST (14-36) U/L ALT (4-34) U/L Lactate Dehydrogenase (313-618) U/L Creatine Kinase (30-135) U/L CK-MB (CK-2) (0.0-2.4) ng/mL Total Protein (6.3-8.2) g/dL Albumin (3.5-5.0) g/dL Stool Occult Blood Positive H (Negative) 11/19/19 11/19/19 11/19/19 Range/Units 14:40 14:40 14:40 WBC 16.8 H (3.8-10.6) k/uL RBC (3.80-5.40) m/uL Hgb (11.4-16.0) gm/dL Hct (34.0-46.0) % Plt Count (150-450) k/uL Neutrophils # 12.9 H (1.3-7.7) k/uL Neutrophils # (Manual) (1.3-7.7) k/uL PT (9.0-12.0) sec INR (<1.2) APTT (22.0-30.0) sec ABG pH (7.35-7.45) ABG pCO2 (35-45) mmHg ABG pO2 (83-108) mmHg ABG HCO3 (21-25) mmol/L ABG Total CO2 (19-24) mmol/L ABG O2 Saturation (94-97) % ABG Lactic Acid (0.5-1.6) mmol/L Sodium (137-145) mmol/L Chloride (98-107) mmol/L Carbon Dioxide (22-30) mmol/L BUN (7-17) mg/dL Creatinine (0.52-1.04) mg/dL Glucose (74-99) mg/dL POC Glucose (mg/dL) (75-99) mg/dL Plasma Lactic Acid Frandy (0.7-2.0) mmol/L Calcium (8.4-10.2) mg/dL Total Bilirubin (0.2-1.3) mg/dL AST (14-36) U/L ALT (4-34) U/L Lactate Dehydrogenase 7076 H (313-618) U/L Creatine Kinase 698 H (30-135) U/L CK-MB (CK-2) 20.5 H (0.0-2.4) ng/mL Total Protein (6.3-8.2) g/dL Albumin (3.5-5.0) g/dL Stool Occult Blood (Negative) 11/19/19 11/19/19 11/19/19 Range/Units 14:40 18:55 18:57 WBC (3.8-10.6) k/uL RBC (3.80-5.40) m/uL Hgb (11.4-16.0) gm/dL Hct (34.0-46.0) % Plt Count (150-450) k/uL Neutrophils # (1.3-7.7) k/uL Neutrophils # (Manual) (1.3-7.7) k/uL PT (9.0-12.0) sec INR 1.2 H (<1.2) APTT 30.9 H (22.0-30.0) sec ABG pH (7.35-7.45) ABG pCO2 (35-45) mmHg ABG pO2 (83-108) mmHg ABG HCO3 (21-25) mmol/L ABG Total CO2 (19-24) mmol/L ABG O2 Saturation (94-97) % ABG Lactic Acid (0.5-1.6) mmol/L Sodium (137-145) mmol/L Chloride (98-107) mmol/L Carbon Dioxide (22-30) mmol/L BUN (7-17) mg/dL Creatinine (0.52-1.04) mg/dL Glucose (74-99) mg/dL POC Glucose (mg/dL) 193 H (75-99) mg/dL Plasma Lactic Acid Frandy 6.8 H* (0.7-2.0) mmol/L Calcium (8.4-10.2) mg/dL Total Bilirubin (0.2-1.3) mg/dL AST (14-36) U/L ALT (4-34) U/L Lactate Dehydrogenase (313-618) U/L Creatine Kinase (30-135) U/L CK-MB (CK-2) (0.0-2.4) ng/mL Total Protein (6.3-8.2) g/dL Albumin (3.5-5.0) g/dL Stool Occult Blood (Negative) 11/19/19 11/19/19 11/19/19 Range/Units 21:56 22:20 22:20 WBC 15.9 H (3.8-10.6) k/uL RBC (3.80-5.40) m/uL Hgb 11.3 L (11.4-16.0) gm/dL Hct (34.0-46.0) % Plt Count (150-450) k/uL Neutrophils # 13.2 H (1.3-7.7) k/uL Neutrophils # (Manual) (1.3-7.7) k/uL PT (9.0-12.0) sec INR (<1.2) APTT (22.0-30.0) sec ABG pH 7.28 L (7.35-7.45) ABG pCO2 20 L (35-45) mmHg ABG pO2 123 H (83-108) mmHg ABG HCO3 9 L* (21-25) mmol/L ABG Total CO2 10 L (19-24) mmol/L ABG O2 Saturation 98.0 H (94-97) % ABG Lactic Acid (0.5-1.6) mmol/L Sodium 121 L (137-145) mmol/L Chloride 94 L (98-107) mmol/L Carbon Dioxide 10 L (22-30) mmol/L BUN 60 H (7-17) mg/dL Creatinine 2.32 H (0.52-1.04) mg/dL Glucose 169 H (74-99) mg/dL POC Glucose (mg/dL) (75-99) mg/dL Plasma Lactic Acid Frandy (0.7-2.0) mmol/L Calcium 6.6 L (8.4-10.2) mg/dL Total Bilirubin (0.2-1.3) mg/dL AST (14-36) U/L ALT (4-34) U/L Lactate Dehydrogenase (313-618) U/L Creatine Kinase (30-135) U/L CK-MB (CK-2) (0.0-2.4) ng/mL Total Protein (6.3-8.2) g/dL Albumin (3.5-5.0) g/dL Stool Occult Blood (Negative) 11/19/19 11/19/19 11/20/19 Range/Units 22:20 23:16 00:53 WBC (3.8-10.6) k/uL RBC (3.80-5.40) m/uL Hgb (11.4-16.0) gm/dL Hct (34.0-46.0) % Plt Count (150-450) k/uL Neutrophils # (1.3-7.7) k/uL Neutrophils # (Manual) (1.3-7.7) k/uL PT (9.0-12.0) sec INR (<1.2) APTT >200.0 H* (22.0-30.0) sec ABG pH 7.08 L* 7.01 L* (7.35-7.45) ABG pCO2 (35-45) mmHg ABG pO2 42 L* 266 H (83-108) mmHg ABG HCO3 12 L 10 L* (21-25) mmol/L ABG Total CO2 13 L 11 L (19-24) mmol/L ABG O2 Saturation 57.4 L 99.3 H (94-97) % ABG Lactic Acid (0.5-1.6) mmol/L Sodium (137-145) mmol/L Chloride (98-107) mmol/L Carbon Dioxide (22-30) mmol/L BUN (7-17) mg/dL Creatinine (0.52-1.04) mg/dL Glucose (74-99) mg/dL POC Glucose (mg/dL) (75-99) mg/dL Plasma Lactic Acid Frandy (0.7-2.0) mmol/L Calcium (8.4-10.2) mg/dL Total Bilirubin (0.2-1.3) mg/dL AST (14-36) U/L ALT (4-34) U/L Lactate Dehydrogenase (313-618) U/L Creatine Kinase (30-135) U/L CK-MB (CK-2) (0.0-2.4) ng/mL Total Protein (6.3-8.2) g/dL Albumin (3.5-5.0) g/dL Stool Occult Blood (Negative) 11/20/19 11/20/19 11/20/19 Range/Units 01:42 05:57 05:57 WBC 10.9 H (3.8-10.6) k/uL RBC 2.46 L (3.80-5.40) m/uL Hgb 7.6 L D (11.4-16.0) gm/dL Hct 23.9 L (34.0-46.0) % Plt Count 131 L (150-450) k/uL Neutrophils # (1.3-7.7) k/uL Neutrophils # (Manual) 8.30 H (1.3-7.7) k/uL PT (9.0-12.0) sec INR (<1.2) APTT (22.0-30.0) sec ABG pH (7.35-7.45) ABG pCO2 (35-45) mmHg ABG pO2 (83-108) mmHg ABG HCO3 (21-25) mmol/L ABG Total CO2 (19-24) mmol/L ABG O2 Saturation (94-97) % ABG Lactic Acid (0.5-1.6) mmol/L Sodium 133 L (137-145) mmol/L Chloride (98-107) mmol/L Carbon Dioxide 8 L* (22-30) mmol/L BUN 48 H (7-17) mg/dL Creatinine 2.29 H (0.52-1.04) mg/dL Glucose 119 H (74-99) mg/dL POC Glucose (mg/dL) 158 H (75-99) mg/dL Plasma Lactic Acid Frandy (0.7-2.0) mmol/L Calcium 4.9 L* (8.4-10.2) mg/dL Total Bilirubin 1.6 H (0.2-1.3) mg/dL AST 5512 H (14-36) U/L ALT 3365 H (4-34) U/L Lactate Dehydrogenase (313-618) U/L Creatine Kinase (30-135) U/L CK-MB (CK-2) (0.0-2.4) ng/mL Total Protein 3.8 L (6.3-8.2) g/dL Albumin 1.4 L (3.5-5.0) g/dL Stool Occult Blood (Negative) 11/20/19 11/20/19 11/20/19 Range/Units 05:57 06:17 06:28 WBC (3.8-10.6) k/uL RBC (3.80-5.40) m/uL Hgb (11.4-16.0) gm/dL Hct (34.0-46.0) % Plt Count (150-450) k/uL Neutrophils # (1.3-7.7) k/uL Neutrophils # (Manual) (1.3-7.7) k/uL PT 23.6 H (9.0-12.0) sec INR 2.4 H (<1.2) APTT 153.1 H* (22.0-30.0) sec ABG pH 7.09 L* (7.35-7.45) ABG pCO2 34 L (35-45) mmHg ABG pO2 385 H (83-108) mmHg ABG HCO3 11 L (21-25) mmol/L ABG Total CO2 12 L (19-24) mmol/L ABG O2 Saturation 99.2 H (94-97) % ABG Lactic Acid 22.2 H* (0.5-1.6) mmol/L Sodium (137-145) mmol/L Chloride (98-107) mmol/L Carbon Dioxide (22-30) mmol/L BUN (7-17) mg/dL Creatinine (0.52-1.04) mg/dL Glucose (74-99) mg/dL POC Glucose (mg/dL) (75-99) mg/dL Plasma Lactic Acid Frandy (0.7-2.0) mmol/L Calcium (8.4-10.2) mg/dL Total Bilirubin (0.2-1.3) mg/dL AST (14-36) U/L ALT (4-34) U/L Lactate Dehydrogenase (313-618) U/L Creatine Kinase (30-135) U/L CK-MB (CK-2) (0.0-2.4) ng/mL Total Protein (6.3-8.2) g/dL Albumin (3.5-5.0) g/dL Stool Occult Blood (Negative) 11/20/19 Range/Units 07:27 WBC (3.8-10.6) k/uL RBC (3.80-5.40) m/uL Hgb (11.4-16.0) gm/dL Hct (34.0-46.0) % Plt Count (150-450) k/uL Neutrophils # (1.3-7.7) k/uL Neutrophils # (Manual) (1.3-7.7) k/uL PT (9.0-12.0) sec INR (<1.2) APTT (22.0-30.0) sec ABG pH (7.35-7.45) ABG pCO2 (35-45) mmHg ABG pO2 (83-108) mmHg ABG HCO3 (21-25) mmol/L ABG Total CO2 (19-24) mmol/L ABG O2 Saturation (94-97) % ABG Lactic Acid (0.5-1.6) mmol/L Sodium (137-145) mmol/L Chloride (98-107) mmol/L Carbon Dioxide (22-30) mmol/L BUN (7-17) mg/dL Creatinine (0.52-1.04) mg/dL Glucose (74-99) mg/dL POC Glucose (mg/dL) 140 H (75-99) mg/dL Plasma Lactic Acid Frandy (0.7-2.0) mmol/L Calcium (8.4-10.2) mg/dL Total Bilirubin (0.2-1.3) mg/dL AST (14-36) U/L ALT (4-34) U/L Lactate Dehydrogenase (313-618) U/L Creatine Kinase (30-135) U/L CK-MB (CK-2) (0.0-2.4) ng/mL Total Protein (6.3-8.2) g/dL Albumin (3.5-5.0) g/dL Stool Occult Blood (Negative) Microbiology - Last 24 Hours (Table) 11/19/19 03:30 Urine Culture - Final Urine,Catheterized Diabetes panel 11/19/19 11/20/19 Range/Units 22:20 05:57 Sodium 121 L 133 L (137-145) mmol/L Potassium 4.3 5.1 (3.5-5.1) mmol/L Chloride 94 L 99 (98-107) mmol/L Carbon Dioxide 10 L 8 L* (22-30) mmol/L BUN 60 H 48 H (7-17) mg/dL Creatinine 2.32 H 2.29 H (0.52-1.04) mg/dL Glucose 169 H 119 H (74-99) mg/dL Calcium 6.6 L 4.9 L* (8.4-10.2) mg/dL AST 5512 H (14-36) U/L ALT 3365 H (4-34) U/L Alkaline Phosphatase 76 (38-126) U/L Total Protein 3.8 L (6.3-8.2) g/dL Albumin 1.4 L (3.5-5.0) g/dL Calcium panel 11/19/19 11/20/19 Range/Units 22:20 05:57 Calcium 6.6 L 4.9 L* (8.4-10.2) mg/dL Albumin 1.4 L (3.5-5.0) g/dL Pituitary panel 11/19/19 11/20/19 Range/Units 22:20 05:57 Sodium 121 L 133 L (137-145) mmol/L Potassium 4.3 5.1 (3.5-5.1) mmol/L Chloride 94 L 99 (98-107) mmol/L Carbon Dioxide 10 L 8 L* (22-30) mmol/L BUN 60 H 48 H (7-17) mg/dL Creatinine 2.32 H 2.29 H (0.52-1.04) mg/dL Glucose 169 H 119 H (74-99) mg/dL Calcium 6.6 L 4.9 L* (8.4-10.2) mg/dL Adrenal panel 11/19/19 11/20/19 Range/Units 22:20 05:57 Sodium 121 L 133 L (137-145) mmol/L Potassium 4.3 5.1 (3.5-5.1) mmol/L Chloride 94 L 99 (98-107) mmol/L Carbon Dioxide 10 L 8 L* (22-30) mmol/L BUN 60 H 48 H (7-17) mg/dL Creatinine 2.32 H 2.29 H (0.52-1.04) mg/dL Glucose 169 H 119 H (74-99) mg/dL Calcium 6.6 L 4.9 L* (8.4-10.2) mg/dL Total Bilirubin 1.6 H (0.2-1.3) mg/dL AST 5512 H (14-36) U/L ALT 3365 H (4-34) U/L Alkaline Phosphatase 76 (38-126) U/L Total Protein 3.8 L (6.3-8.2) g/dL Albumin 1.4 L (3.5-5.0) g/dL - Imaging CT scan - abdomen: report reviewed (Diffuse portal venous gas and pneumatosis intestinalis, high-density pericardial effusion suggestive hemopericardium) Assessment and Plan Assessment: Patient has developed ischemic bowel related to her recent CO. She also had shock liver. Supportive care as being withdrawn. No surgical intervention will be scheduled.
--- NOTE | 2019-11-20 12:17 | P.DS ---
Providers Date of admission: 11/18/19 18:08 Attending physician: Graciela Leo Consults: 11/18/19 16:30 Consult Physician Stat Consulting Provider: Cardiology Grant Consult Reason/Comments: STEMI ACTIVATION COMPLETE Do you want consulting provider notified?: Yes 11/18/19 18:08 Consult Physician Stat Consulting Provider: Wally Guerrero Consult Reason/Comments: ST elevation myocardial infarction, pericardial effusion Do you want consulting provider notified?: Already Contacted 11/18/19 19:07 Consult Physician Routine Consulting Provider: Marquis Burns Consult Reason/Comments: Post Interventional patient Do you want consulting provider notified?: Already Contacted 11/19/19 11:32 Consult Physician Stat Consulting Provider: Cornelio Martins Consult Reason/Comments: Hematuria, anuric Do you want consulting provider notified?: Already Contacted 11/19/19 21:26 Consult Physician Stat Consulting Provider: David Miramontes Consult Reason/Comments: Possible ischemic bowel Do you want consulting provider notified?: Yes 11/19/19 21:34 Consult Physician Stat Consulting Provider: Andres Valdivia Consult Reason/Comments: Respiratory distress Do you want consulting provider notified?: Yes Primary care physician: Stated None Hospital Course: Patient was admitted with the history was microinfarction underwent cardiac catheterization and stenting of LAD. She was subsequently several dental advise and patient was in heart failure patient was in the cardiac shock. Patient later started complaining of abdominal pain CAT scan was obtained which showed ischemic bowel general surgery was consulted. Patient later in the day desaturated went into respiratory failure with severe metabolic acidosis and lactic acidosis subsequently was intubated was on pressor support on dobutamine drip. Later during the nighttime earlier today morning patient was coded multiple times. Please refer to the note. Patient subsequently please refer to the documentation from the physician who coded the patient regarding the time of . Patient Condition at Discharge: Serious Plan - Discharge Summary New Discharge Prescriptions: No Action Unable To Assess [Unable to Assess] Discharge Medication List Unable To Assess [Unable to Assess] 11/20/19 [History] Follow up Appointment(s)/Referral(s): None,Stated [Primary Care Provider] - 1-2 days - Preliminary Cause of Preliminary Cause of : Ischemic bowel, ST elevation myocardial infarction, Cardiogenic shock
--- NOTE | 2019-11-22 09:51 | CDI ---
Documentation Clarification Form Date: 11/22/19 From: Vicki Aragon CCS Phone: If you have a question about this query, please contact Lorena Hull, Hand Singer at [phone] between 8am and 5pm. Admit Date: 11/18/19 Discharge Date:11/20/19 Patient Name: Mireya Gandhi Visit Number: [id number] ATTENTION: The Clinical Documentation Specialists (CDI) and [facility] Coding Staff appreciate your assistance in clarifying documentation. Please respond to the clarification below the line at the bottom and electronically sign. The CDI & [facility] Coding staff will review the response and follow-up if needed. Please note: Queries are made part of the Legal Health Record. If you have any questions, please contact the author of this message via ITS. Dear Dr. De Dios, Patient does have significant heart failure on the CAT scan along with dilated IVC. is documented in the H&P. -Acute systolic dysfunction from acute microinfarction with acute exacerbation patient will need Lasix eventually once her blood pressure is able to tolerate patient is off Levophed patient has an Impella device in place, IV fluids will be discontinued patient was started on dobutamine drip documented in the H&P. History/Risk Factors: STEMI, CAD, Cardiogenic shock, ICM Clinical Indicators: Pulmonary Edema VS/Pulse OX: BP 85/68, [place] 134, RR 20, O2 Sat 98 Echocardiogram Results: The left ventricular size is normal.Overall left ventricular systolic function is severely impaired with, an EF < 20%. Chest X Ray: There is some chronic parenchymal change without suspicious new focal air space opacity, pleural effusion, or pneumothorax seen. Treatment: Lasix 20 mg IV In your professional opinion, can you please clarify the acuity and type of CHF if known? Systolic Heart Failure: Acute Chronic Acute on Chronic Diastolic Heart Failure: Acute Chronic Acute on Chronic Systolic & Diastolic Heart Failure: Acute Chronic Acute on Chronic Heart Failure Unable to Determine Other, please specify already dictated it in my note clearly patient has acute systolic dysfunction MTDD
--- NOTE | 2019-11-22 10:01 | CDI ---
Documentation Clarification Form Date: 11/22/19 From: Vicki Aragon CCS Phone: If you have a question about this query, please contact Lorena Hull, Emd Teacher at [phone] between 8am and 5pm. Admit Date: 11/18/19 Discharge Date:11/20/19 Patient Name: Mireya Gandhi Visit Number: [id number] ATTENTION: The Clinical Documentation Specialists (CDI) and [facility] Coding Staff appreciate your assistance in clarifying documentation. Please respond to the clarification below the line at the bottom and electronically sign. The CDI & [facility] Coding staff will review the response and follow-up if needed. Please note: Queries are made part of the Legal Health Record. If you have any questions, please contact the author of this message via ITS. Dear Dr. De Dios, Altered Mental Status was documented in the ED, H&P. Patient is noted to be quite confused, and she is not able to answer any questions appropriately at this time. We are in agreement that given the patient's altered mentation and tachycardia that a noncontrast CT head and CT angiogram chest be obtained to rule out CVA/intracranial hemorrhage and pulmonary embolus documented in the ED. History/Risk Factors: STEMI, Cardiogenic shock, Dementia, Acidosis, Hyponatremia Clinical Indicators: Confused, AMS Labs: Lactic Acid 6.8 CT: No acute intracranial hemorrhage or midline shift.There is mild to moderate diffuse cerebral atrophy greatest over bilateral frontal lobes and chronic small vessel ischemic change noted. In your professional opinion, please clarify the etiology of the Altered Mental Status, if known. Metabolic Encephalopathy Delirium (specify cause): Dementia (if know, specify Type and if with/without Behavioral Disturbance) Other Encephalopathy Other condition (please specify) Unable to determine Metabolic Encephalopathy MTDD
[2019-11-27 07:51] LABS: ABG PH 7.08 (7.35-7.45); ABG PO2 42 mmHg (83-108)
[2019-11-27 07:53] LABS: ABG HCO3 10 mmol/L (21-25); ABG PH 7.01 (7.35-7.45)
[2019-11-27 07:58] LABS: ABG PH 7.09 (7.35-7.45)
--- NOTE | 2019-11-27 15:08 | CDI ---
Documentation Clarification Form Date: 11/27/2019 02:46:53 PM From: Kristen DAVALOS,CCDS,RN Phone: [phone] Admit Date: 11/18/2019 06:08:00 PM Patient Name: Mireya Gandhi Visit Number: [id number] Discharge Date: 11/20/2019 12:51:00 PM ATTENTION: The Clinical Documentation Specialists (CDI) and [facility] Coding Staff appreciate your assistance in clarifying documentation. Please respond to the clarification below the line at the bottom and electronically sign. The CDI & [facility] Coding staff will review the response and follow-up if needed. Please note: Queries are made part of the Legal Health Record. If you have any questions, please contact the author of this message via ITS. Dr. David Miramontes After study please specify, if known, the acuity of ischemic bowel in this patient presenting with acute STEMI with cardiogenic shock and shock liver, History/Risk Factor: Cardiac cath with stenting of LAD, impella device, and acute diastolic CHF and cardiogenic shock, ATN , hx of cholecystectomy Clinical Indicators: developed abdominal pain and severe acidosis in the setting of Cardiogenic shock and STEMI Lab findings: abgs 7.01 Po2 266 Hco3 10 Co2 11 , wbcs 10.9 ABGS Lactic acid 22.2 on 11/19 serum lactic acid on 11/09 to 6.8 Radiology findings: CT of abdomen 11/18 showed new diffuse portal venous gas and pneumatosis intestinalis Vital Signs: 52/43 Hr 84 RR 24 Other Clinical Indicators: Your consult notes pt had deterioration in her condition and was foind to have evidence of ischemic bowel, significant issues with hypotension and was on maximum dose pressors. Assessment patient has developed ischemic bowel related to her recent [place], Supportive care as being withdrawn no surgical intervention will be scheduled, In your professional opinion, can you please render your opinion on the acuity, if known, of ischemic bowel ? Acute ischemic bowel Acute on Chronic ischemic bowel Chronic ischemic bowel Other, please specify Unable to determine Unable to determine MTDD
== END 2019-11-20 12:51 | disposition expired | DRG 216 ==
LOC: EC 16:28 → 2SICU 18:08 → UNDODISIN 11-20 04:26
PROVIDERS: ADMIT Internal Medicine; ATTEND Internal Medicine
PROC: B2111ZZ Fluoroscopy of Multiple Coronary Arteries using Low Osmolar Contrast (ICD-10-PCS; 2019-11-18)
PROC: B41F1ZZ Fluoroscopy of Right Lower Extremity Arteries using Low Osmolar Contrast (ICD-10-PCS; 2019-11-18)
PROC: 5A0221D Assistance with Cardiac Output using Impeller Pump, Continuous (ICD-10-PCS; principal; 2019-11-18 16:48)
PROC: 4A023N7 Measurement of Cardiac Sampling and Pressure, Left Heart, Percutaneous Approach (ICD-10-PCS; 2019-11-18 16:48)
PROC: 027135Z Dilation of Coronary Artery, Two Arteries with Two Drug-eluting Intraluminal Devices, Percutaneous Approach (ICD-10-PCS; 2019-11-18 16:48)
PROC: 02PA3RZ Removal of Short-term External Heart Assist System from Heart, Percutaneous Approach (ICD-10-PCS; 2019-11-19)
PROC: 0BH17EZ Insertion of Endotracheal Airway into Trachea, Via Natural or Artificial Opening (ICD-10-PCS; 2019-11-19)
PROC: 5A1935Z Respiratory Ventilation, Less than 24 Consecutive Hours (ICD-10-PCS; 2019-11-19)
PROC: 3E043XZ Introduction of Vasopressor into Central Vein, Percutaneous Approach (ICD-10-PCS; 2019-11-19)
PROC: 5A12012 Performance of Cardiac Output, Single, Manual (ICD-10-PCS; 2019-11-19)
PROC: 0D9670Z Drainage of Stomach with Drainage Device, Via Natural or Artificial Opening (ICD-10-PCS; 2019-11-19)
PROC: 02HV33Z Insertion of Infusion Device into Superior Vena Cava, Percutaneous Approach (ICD-10-PCS; 2019-11-20)
PROC: 03HY32Z Insertion of Monitoring Device into Upper Artery, Percutaneous Approach (ICD-10-PCS; 2019-11-20)
PROC: 4A133B1 Monitoring of Arterial Pressure, Peripheral, Percutaneous Approach (ICD-10-PCS; 2019-11-20)
PROC: 4A133J1 Monitoring of Arterial Pulse, Peripheral, Percutaneous Approach (ICD-10-PCS; 2019-11-20)
DX: I21.09 ST elevation (STEMI) myocardial infarction involving other coronary artery of anterior wall (principal); I50.21 Acute systolic (congestive) heart failure; N17.0 Acute kidney failure with tubular necrosis; J96.01 Acute respiratory failure with hypoxia; K72.00 Acute and subacute hepatic failure without coma; G93.41 Metabolic encephalopathy; E87.2 Acidosis; I31.3 Pericardial effusion (noninflammatory); E87.1 Hypo-osmolality and hyponatremia; Z68.41 Body mass index [BMI] 40.0-44.9, adult; K55.9 Vascular disorder of intestine, unspecified; K92.2 Gastrointestinal hemorrhage, unspecified; I31.2 Hemopericardium, not elsewhere classified; I31.4 Cardiac tamponade; G93.1 Anoxic brain damage, not elsewhere classified; Z66 Do not resuscitate; Z51.5 Encounter for palliative care; K76.1 Chronic passive congestion of liver; J44.9 Chronic obstructive pulmonary disease, unspecified; E66.9 Obesity, unspecified; R57.0 Cardiogenic shock; F20.9 Schizophrenia, unspecified; R31.9 Hematuria, unspecified; F03.90 Unspecified dementia, unspecified severity, without behavioral disturbance, psychotic disturbance, mood disturbance, and anxiety; M19.90 Unspecified osteoarthritis, unspecified site; R26.9 Unspecified abnormalities of gait and mobility; F31.9 Bipolar disorder, unspecified; R00.0 Tachycardia, unspecified; I25.10 Atherosclerotic heart disease of native coronary artery without angina pectoris; R34 Anuria and oliguria; H91.92 Unspecified hearing loss, left ear; F41.9 Anxiety disorder, unspecified; K63.89 Other specified diseases of intestine; I25.5 Ischemic cardiomyopathy; Z71.3 Dietary counseling and surveillance; Z79.899 Other long term (current) drug therapy; Z86.14 Personal history of Methicillin resistant Staphylococcus aureus infection; Z98.890 Other specified postprocedural states; Z90.49 Acquired absence of other specified parts of digestive tract; Z87.891 Personal history of nicotine dependence; Z91.14 Patient's other noncompliance with medication regimen; Z88.8 Allergy status to other drugs, medicaments and biological substances; Z80.0 Family history of malignant neoplasm of digestive organs; Z83.2 Family history of diseases of the blood and blood-forming organs and certain disorders involving the immune mechanism
CPT/HCPCS: 33992; 36415; 70450; 71045; 71275; 74176; 80048; 80053; 80164; 80320; 82272; 82550; 82553; 82805; 83605; 83615; 83735; 84484; 85025; 85347; 85384; 85610; 85730; 87040; 87086; 87324; 93005; 93308; 93458; 94002; 94003; 94640; 94770; 99291